=== PATIENT | male | born 1950 | race Caucasian/White ===

== ENCOUNTER 2019-09-22 11:20 | Outpatient (CLI) | payer MEDICARE, SELFPAY ==
[2019-09-22 11:34] LABS: Basophils Absolute Auto 0.01 K/mm3 (0.00-0.10); Basophils Percent Auto 0.2 % (0.0-1.0); Eosinophils Absolute Auto 0.27 K/mm3 (0.02-0.50); Hematocrit 44.1 % (37.0-46.0); Hemoglobin 15.9 g/dL (12.4-15.3); Immature Granulocyte Absolute 0.01 K/mm3 (0.00-0.00); Immature Granulocyte Percent A 0.2 % (0.0-0.0); Lymphocytes Percent Auto 18.5 % (18.0-42.0); Mean Corpuscular HGB Conc 36.1 g/dL (32.0-36.0); Mean Corpuscular Hemoglobin 33.5 pg (27.0-31.0); Mean Corpuscular Volume 92.8 fL (78.0-102.0); Mean Platelet Volume 9.4 fl (8.7-11.0); Monocytes Percent Auto 11.1 % (2.0-11.0); Neutrophils Absolute Auto 3.5 K/mm3 (1.7-7.2); Platelet Count Result 176 K/mm3 (150-420); Red Blood Count 4.75 M/mm3 (4.70-6.10); Red Cell Distribution Width 12.9 % (11.6-14.4); White Blood Count 5.4 K/mm3 (4.8-10.8)
[2019-09-22 13:26] LABS: Alanine Aminotransferase 35 U/L (16-63); Albumin Level 3.8 g/dL (3.4-5.0); Alkaline Phosphatase 91 U/L (46-116); Aspartate Amino Transferase 26 U/L (15-37); Bilirubin,Total 0.8 mg/dL (0.00-1.00); Blood Urea Nitrogen 19 mg/dL (7-18); Calcium 9.2 mg/dL (8.5-10.1); Carbon Dioxide 31 mmol/L (21-32); Chloride 97 mmol/L (98-108); Cholesterol 167 mg/dL (0-200); Estimated Glomerular Filt Rate 59; Glucose 85 mg/dL (70-99); HDL Direct 94 mg/dL (40-60); LDL Cholesterol Calculated 62 mg/dL (<130); Osmolality Calculated 279 mOsm/kg (285-295); Prostate Specific Antigen 1.5 ng/mL (< OR = 4.0); Sodium 134 mmol/L (136-145); Thyroid Stimulating Hormone 2.23 uIU/mL (0.36-3.74); Total Protein 7.1 g/dL (6.4-8.2); Triglycerides 54 mg/dL (0-150)
== END 2019-09-22 11:21 | disposition home or self-care (01) ==
LOC: CHSLAB 11:25
PROVIDERS: PCP Nurse Practitioner Family; Visit Provider Nurse Practitioner Family
DX: J44.9 Chronic obstructive pulmonary disease, unspecified (principal); I10 Essential (primary) hypertension; E03.9 Hypothyroidism, unspecified; E78.5 Hyperlipidemia, unspecified; F17.200 Nicotine dependence, unspecified, uncomplicated; Z12.5 Encounter for screening for malignant neoplasm of prostate
CPT/HCPCS: 36415; 80053; 80061; 84153; 84443; 85025; G0103

== ENCOUNTER 2020-06-15 14:16 | Outpatient (CLI) | payer MEDICARE, SELFPAY ==
[2020-06-15 15:27] LABS: SARS-CoV-2 RNA PCR Negative (Negative)
== END 2020-06-15 14:17 | disposition home or self-care (01) ==
LOC: CHSLAB 14:19
PROVIDERS: PCP Nurse Practitioner Family; Visit Provider Nurse Practitioner Family
DX: Z20.822 Contact with and (suspected) exposure to COVID-19 (principal)
CPT/HCPCS: C9803; U0003; U0005

== ENCOUNTER 2020-06-17 20:09 | Outpatient (CLI) | payer MEDICARE, BC, SELFPAY ==
--- NOTE | 2020-06-22 14:47 | WPDSLEEPSTUD ---
Sleep Study Date of Study: 06/17/20 Ordering Provider: Shobha Conklin NP Interpreting Physician: Ryan Horta MD Sleep Study Type: Polysomnogram Height: 1.73 m Weight: 81.647 kg Body Mass Index: 27.3 Neck Circumference (inches): 15.5 [place]: 2 Reason for Sleep Study Patient reports history of loud disruptive snoring, being fatigued and tired during daytime, prior sleep study approximately 20 years ago where a diagnosis of sleep apnea was made and the patient was recommended to have CPAP. Heparin TF 2nd sleep study was not conclusive. Patient also reports occasionally awakening in the middle of the night gasping for breath, occasional heartburn. Comorbid conditions include hypertension, COPD. Sleep History Loud snoring, daytime fatigue and tiredness. And overall poor sleep quality. [facility] Past Medical History Medical History (Updated 06/13/20 @ 14:38 by Jennifer Doshi MA) COPD (chronic obstructive pulmonary disease) COPD exacerbation Hyperlipidemia Hypertension Hypothyroidism Insomnia Nicotine dependence Nicotine dependence in remission Surgical History Surgical History History of cholecystectomy History of esophagogastroduodenoscopy (EGD) Family History Family History Mother Healthy adult Father , Age 61 Abdominal aneurysm Social History Social History Smoking packs per day: 1 Smoking cigarettes per day: 20.0 Years smoked: 50 Smoking pack-years: 50.00 Smoking status: Current every day smoker Alcohol intake: current Substance use: never Substance use type: does not use Additional living arrangements comments: , has 2 children Additional occupation/education comments: [place] [employer] Gender identity (if verbalized by the patient): Male Spiritual care concerns: No Medications Home Medications Medication Instructions Recorded Confirmed Type amlodipine 10 mg tablet 10 mg PO DAILY #90 tablet 04/04/20 04/04/20 Rx ascorbate calcium (vitamin C) 500 1 g PO DAILY tablet 04/04/20 History mg tablet budesonide-formoterol HFA 80 2 puff INHALATION Q12H #10.2 gm 04/04/20 04/04/20 Rx mcg-4.5 mcg/actuation aerosol inhaler levothyroxine 50 mcg tablet 50 mcg PO DAILY #90 tablet 04/04/20 04/04/20 Rx losartan 100 1 tablet PO DAILY #90 tablet 04/04/20 04/04/20 Rx mg-hydrochlorothiazide 12.5 mg tablet metoprolol succinate 50 mg 50 mg PO DAILY #90 tablet 04/04/20 04/04/20 Rx tablet,extended release 24 hr multivitamin 1 tablet PO DAILY #90 tablet 04/04/20 04/04/20 Rx pravastatin 40 mg tablet 40 mg PO DAILY #90 tablet 04/04/20 04/04/20 Rx trazodone 100 mg tablet 100 mg PO DAILY PRN #90 tablet 04/04/20 04/04/20 Rx albuterol sulfate 90 mcg/actuation 1 puff INHALATION Q4H PRN #8.5 gm 04/18/20 Rx aerosol inhaler Sleep Procedure Patient underwent overnight polysomnography in lab. Sleep Architecture Total recording time 454 minutes, total sleep time 284 minutes, sleep efficiency 62.6% which is poor. Sleep latency 63 minutes, REM latency 139 minutes. Awake after sleep onset 106.5 minutes, stage N1 16.4%, N2 69.1%, N3 0% and stage R 14.6%. Supine sleep 41.5%, supine REM sleep 9.5%.. Respiratory Analysis CMS criteria used Patient had 2 obstructive apneas with index 0.4 there were no central apneas, 43 hypopneas with index 9.1. AHI 9.5, supine index 21.9, nonsupine index 0.7. REM index 31.8, non-REM index 5.7. Arousals Total arousals 146 with index 19.3. Spontaneous arousals 45, leg movement arousals 25, snores arousals 53, hypopnea arousals 22, apnea arousals 1. Periodic Limb Movements There were 96 leg movements with index 20.3, 25 were associated with arousals with index 3.3 which is not excessive. There were no PLMS. Oximetry Data Mean oxygen saturati
[2020-06-22 15:04] VITALS: BMI 27.3
== END 2020-06-17 20:10 | disposition home or self-care (01) ==
LOC: CHSCSM 20:10
PROVIDERS: PCP Nurse Practitioner Family; Visit Provider Nurse Practitioner Family
DX: G47.33 Obstructive sleep apnea (adult) (pediatric) (principal)
CPT/HCPCS: 95810

== ENCOUNTER 2020-07-06 12:50 | Outpatient (CLI) | payer MEDICARE, SELFPAY ==
[2020-07-06 14:10] LABS: SARS-CoV-2 RNA PCR Negative (Negative)
== END 2020-07-06 12:51 | disposition home or self-care (01) ==
PROVIDERS: PCP Nurse Practitioner Family; Visit Provider Internal Medicine Critical Care Medicine
DX: Z01.812 Encounter for preprocedural laboratory examination (principal); Z20.822 Contact with and (suspected) exposure to COVID-19
CPT/HCPCS: C9803; U0003; U0005

== ENCOUNTER 2020-07-08 19:47 | Outpatient (CLI) | payer MEDICARE, BC, SELFPAY ==
--- NOTE | 2020-07-22 08:25 | WPDSLEEPSTUD ---
Sleep Study Ordering Provider: Shobha Conklin NP Interpreting Physician: Ryan Horta MD Sleep Study Type: CPAP Titration Height: 17.68 m Weight: 81.647 kg Body Mass Index: 0.2 Neck Circumference (inches): 15.5 [place]: 2 Reason for Sleep Study The patient has had prior sleep study on June 17, 2020, which showed presence of [id number] obstructive sleep apnea more prominent in supine sleep and during REM sleep. Patient was therefore referred for CPAP titration study because of his comorbid conditions and presence of hypoxia noted during the diagnostic sleep study. Sleep History Snoring, daytime sleepiness, non refreshing sleep. Patient has COPD. [facility] Past Medical History Medical History (Updated 06/13/20 @ 14:38 by Jennifer Pate MA) COPD (chronic obstructive pulmonary disease) COPD exacerbation Hyperlipidemia Hypertension Hypothyroidism Insomnia Nicotine dependence Nicotine dependence in remission Surgical History Surgical History History of cholecystectomy History of esophagogastroduodenoscopy (EGD) Family History Family History Mother Healthy adult Father , Age 61 Abdominal aneurysm Social History Social History Smoking packs per day: 1 Smoking cigarettes per day: 20.0 Years smoked: 50 Smoking pack-years: 50.00 Smoking status: Current every day smoker Alcohol intake: current Substance use: never Substance use type: does not use Additional living arrangements comments: , has 2 children Additional occupation/education comments: [employer] minor Gender identity (if verbalized by the patient): Male Spiritual care concerns: No Medications Home Medications Medication Instructions Recorded Confirmed Type amlodipine 10 mg tablet 10 mg PO DAILY #90 tablet 04/04/20 04/04/20 Rx ascorbate calcium (vitamin C) 500 1 g PO DAILY tablet 04/04/20 History mg tablet levothyroxine 50 mcg tablet 50 mcg PO DAILY #90 tablet 04/04/20 04/04/20 Rx losartan 100 1 tablet PO DAILY #90 tablet 04/04/20 04/04/20 Rx mg-hydrochlorothiazide 12.5 mg tablet metoprolol succinate 50 mg 50 mg PO DAILY #90 tablet 04/04/20 04/04/20 Rx tablet,extended release 24 hr multivitamin 1 tablet PO DAILY #90 tablet 04/04/20 04/04/20 Rx pravastatin 40 mg tablet 40 mg PO DAILY #90 tablet 04/04/20 04/04/20 Rx trazodone 100 mg tablet 100 mg PO DAILY PRN #90 tablet 04/04/20 04/04/20 Rx albuterol sulfate 90 mcg/actuation 1 puff INHALATION Q4H PRN #8.5 gm 06/29/20 Rx aerosol inhaler budesonide-formoterol HFA 80 2 puff INHALATION Q12H #10.2 gm 06/29/20 Rx mcg-4.5 mcg/actuation aerosol inhaler Sleep Procedure Patient underwent overnight polysomnography for the purpose of CPAP titration. Patient used [employer] fullface mask of large size. Sleep Architecture Total recording time 505 minutes, total sleep time 245 minutes, sleep efficiency 48.5%. Sleep latency 68 minutes, REM latency 68 minutes. Awake after sleep onset 192 minutes, stage N1 6.1%, stage N2 82.6%, stage N3 0%, stage R 11.2%,. Supine sleep 20.9%, supine REM sleep 0.9%. Respiratory Analysis CMS criteria were used. During CPAP titration patient had 1 central apnea with index 0.2, there were 5 hypopneas with index 1.2, AHI 1.5. REM index 4.4, non-REM index 1.1. Supine index 4.7, nonsupine index 0.6. Arousals Total arousals 31 with index 3.7, spontaneous arousal 30, hypopnea arousal 1. Periodic Limb Movements There were no leg movements. Oximetry Data Mean oxygen saturation 88.7%, lowest saturation 85%. SaO2<90%-243Min, SaO2<88%-16.4 Min. Patient continued to show mild but persistent hypoxia during CPAP titration. Hypoxia was also noted during diagnostic study in the past. Snoring Profile Mild interm
== END 2020-07-08 19:48 | disposition home or self-care (01) ==
LOC: CHSCSM 19:48
PROVIDERS: PCP Nurse Practitioner Family; Visit Provider Nurse Practitioner Family
DX: G47.33 Obstructive sleep apnea (adult) (pediatric) (principal)
CPT/HCPCS: 95811

== ENCOUNTER 2020-09-23 09:36 | Outpatient (CLI) | payer MEDICARE, BC, SELFPAY ==
[2020-09-23 09:50] LABS: Basophils Absolute Auto 0.03 K/mm3 (0.00-0.10); Basophils Percent Auto 0.6 % (0.0-1.0); Eosinophils Absolute Auto 0.31 K/mm3 (0.02-0.50); Eosinophils Percent Auto 6.1 % (1.0-6.0); Hematocrit 43.4 % (37.0-46.0); Hemoglobin 15.1 g/dL (12.4-15.3); Immature Granulocyte Absolute 0.01 K/mm3 (0.00-0.00); Immature Granulocyte Percent A 0.2 % (0.0-0.0); Lymphocytes Absolute Auto 0.99 K/mm3 (1.10-4.50); Lymphocytes Percent Auto 19.6 % (18.0-42.0); Mean Corpuscular HGB Conc 34.8 g/dL (32.0-36.0); Mean Corpuscular Hemoglobin 32.5 pg (27.0-31.0); Mean Corpuscular Volume 93.5 fL (78.0-102.0); Mean Platelet Volume 8.8 fl (8.7-11.0); Monocytes Absolute Auto 0.63 K/mm3 (0.10-0.90); Monocytes Percent Auto 12.5 % (2.0-11.0); Neutrophils Absolute Auto 3.1 K/mm3 (1.7-7.2); Platelet Count Result 163 K/mm3 (150-420); Red Blood Count 4.64 M/mm3 (4.70-6.10); Red Cell Distribution Width 13.2 % (11.6-14.4); White Blood Count 5.1 K/mm3 (4.8-10.8)
[2020-09-23 10:38] LABS: Alanine Aminotransferase 30 U/L (16-63); Albumin Level 3.5 g/dL (3.4-5.0); Alkaline Phosphatase 93 U/L (46-116); Anion Gap 7 mmol/L (8-16); Aspartate Amino Transferase 19 U/L (15-37); Bilirubin,Total 0.8 mg/dL (0.00-1.00); Blood Urea Nitrogen 11 mg/dL (7-18); Calcium 8.9 mg/dL (8.5-10.1); Carbon Dioxide 30 mmol/L (21-32); Chloride 105 mmol/L (98-108); Cholesterol 162 mg/dL (0-200); Estimated Glomerular Filt Rate > 60; Glucose 89 mg/dL (70-99); HDL Direct 87 mg/dL (40-60); LDL Cholesterol Calculated 65 mg/dL (<130); Osmolality Calculated 292 mOsm/kg (285-295); Prostate Specific Antigen 1.3 ng/mL (< OR = 4.0); Sodium 142 mmol/L (136-145); Thyroid Stimulating Hormone 1.27 uIU/mL (0.36-3.74); Total Protein 6.6 g/dL (6.4-8.2); Triglycerides 51 mg/dL (0-150)
== END 2020-09-23 09:37 | disposition home or self-care (01) ==
LOC: CHSLAB 09:40
PROVIDERS: PCP Nurse Practitioner Family; Visit Provider Nurse Practitioner Family
DX: E78.5 Hyperlipidemia, unspecified (principal); I10 Essential (primary) hypertension; R39.12 Poor urinary stream; E03.9 Hypothyroidism, unspecified
CPT/HCPCS: 36415; 80053; 80061; 84153; 84443; 85025

== ENCOUNTER 2021-03-15 14:09 | Outpatient (CLI) | payer MEDICARE, BC, SELFPAY ==
--- NOTE | ~2021-03-15 | XR_ITS ---
EXAMINATION: XR shoulder RT min 2V DATE: 03/15/2021 14:50 INDICATION: Right shoulder pain. TECHNIQUE: 4 views of right shoulder were obtained. COMPARISON: Chest CT 05/31/2018 FINDINGS: Bone alignment is normal. No acute fracture. There is mild osteoarthritis of glenohumeral j oint and severe osteoarthritis of acromioclavicular joint. There are old healed right rib fractures. Calcified hilar and mediastinal lymph nodes are consistent with old granulomatous disease. IMPRESSION: 1. Polyarticular osteoarthritis. Reviewed, dictated and finalized at location A. MING MACHINE OPERATOR
== END 2021-03-15 14:10 | disposition home or self-care (01) ==
LOC: CHSIMG 14:11
PROVIDERS: PCP Nurse Practitioner Family; Visit Provider Nurse Practitioner Family
DX: M25.511 Pain in right shoulder (principal)
CPT/HCPCS: 73030

== ENCOUNTER 2021-05-20 14:30 | Outpatient (CLI) | payer MEDICARE, BC, SELFPAY ==
--- NOTE | ~2021-05-20 | XR_ITS ---
EXAMINATION: XR elbow RT min 3V DATE: 05/20/2021 15:50 INDICATION: Right elbow pain TECHNIQUE: Anteroposterior, two oblique and lateral views of the right elbow were obtained. COMPARISON: None. FINDINGS: Alignment is normal. No fracture or joint effusion. Osteoarthritis at the right elbow with marginal o steophytes and nonuniform joint space narrowing which is of moderate severity at the radiocapitellar articulation. Marginal osteophyte at the proximal olecranon and likely loose body at the olecranon fo ssa. Results in decreased range of motion with flexion. Soft tissues are unremarkable. IMPRESSION: 1. Right elbow osteoarthritis moderate severity at the radiocapitellar articulation. Reviewed, dictated and finalized at location A. CIATE COUNSEL IMPRESSION: 1. Right elbow osteoarthritis moderate severity at the radiocapitellar articula tion.
== END 2021-05-20 14:31 | disposition home or self-care (01) ==
LOC: CHSIMG 14:33
PROVIDERS: PCP Orthopaedic Surgery; Visit Provider Orthopaedic Surgery
DX: M25.521 Pain in right elbow (principal)
CPT/HCPCS: 73080

== ENCOUNTER 2021-07-13 14:18 | Outpatient (CLI) | payer MEDICARE, SELFPAY ==
[2021-07-13 15:08] LABS: SARS-CoV-2 RNA PCR Negative (Negative)
[2021-07-13 15:19] LABS: Influenza A QL RT-PCR Negative (Negative); Influenza B QL RT-PCR Negative (Negative)
== END 2021-07-13 14:19 | disposition home or self-care (01) ==
LOC: CHSLAB 14:20
PROVIDERS: PCP Nurse Practitioner Family; Visit Provider Nurse Practitioner Family
DX: R50.9 Fever, unspecified (principal); Z20.822 Contact with and (suspected) exposure to COVID-19
CPT/HCPCS: 87502; C9803; U0003; U0005

== ENCOUNTER 2021-08-03 10:41 | Outpatient (CLI) | payer MEDICARE, SELFPAY ==
--- NOTE | ~2021-08-03 | CT_ITS ---
EXAMINATION: CT abdomen pelvis w con DATE: 08/03/2021 12:30 INDICATION: Lower abdominal pain. Intermittent diarrhea and constipation. TECHNIQUE: Computed tomography (CT) of the abdomen and pelvis was performed with 100 mL Omnipaque-300 intravenous contrast. Automated exposure control and iterative reconstruction technique were employe d. The dose-length product was 414.56 mGy-cm. COMPARISON: 06/01/2013 FINDINGS: Emphysema at the lung bases. Calcified right lower lobe nodule along with single hepatic location and several splenic calcific lesions consistent with old granulomatous disease. Heart size is normal. At herosclerotic coronary artery calcification. No pericardial or pleural effusion. Small fat-containing hiatal hernia. Cholecystectomy clips at the bilateral fossa. Mild focal hepatic steatosis at the lig amentum teres. Pancreas and bilateral adrenal glands are normal. Small bilateral renal cysts, the lar rosario on the right measuring 11 mm. Prominent diverticulosis along the descending and sigmoid colon. Mi ld wall thickening and inflammatory stranding at the distal descending colon consistent with divertic ulitis. Small bowel and appendix are normal. No abscess or free intraperitoneal gas or fluid. Bladder is normal. Calcific a cyst in the mildly enlarged prostate which measures 4.4 x 3.5 cm . No patholog ically enlarged abdominal or pelvic lymphadenopathy. There is calcified atherosclerosis of the aorta and many of the other arteries. Fusiform ectasia of the infrarenal aorta which measures up to 3.5 cm maximal diameter. 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 IMPRESSION: 1. Radiographically uncomplicated diverticulitis along the distal descending colon. Reviewed, dictated and finalized at location B. IMPRESSION: 1. Radiographically uncomplicated diverticulitis along the distal descending co saw.
[2021-08-03 10:55] LABS: Hematocrit 41.3 % (37.0-46.0); Hemoglobin 13.8 g/dL (12.4-15.3); Mean Corpuscular HGB Conc 33.4 g/dL (32.0-36.0); Mean Corpuscular Hemoglobin 31.7 pg (27.0-31.0); Mean Corpuscular Volume 94.7 fL (78.0-102.0); Mean Platelet Volume 9.4 fl (8.7-11.0); Platelet Count Result 199 K/mm3 (150-420); Red Blood Count 4.36 M/mm3 (4.70-6.10); Red Cell Distribution Width 12.5 % (11.6-14.4); White Blood Count 7.7 K/mm3 (4.8-10.8)
[2021-08-03 11:07] LABS: Prothrombin Time 10.5 Seconds (9.50-12.10)
[2021-08-03 11:23] LABS: Alanine Aminotransferase 22 U/L (16-63); Albumin Level 2.8 g/dL (3.4-5.0); Alkaline Phosphatase 94 U/L (46-116); Anion Gap 7 mmol/L (8-16); Aspartate Amino Transferase 15 U/L (15-37); Bilirubin,Total 0.6 mg/dL (0.00-1.00); Blood Urea Nitrogen 16 mg/dL (7-18); CRP 16.9 mg/dL (0.0-0.9); Calcium 8.6 mg/dL (8.5-10.1); Carbon Dioxide 28 mmol/L (21-32); Chloride 102 mmol/L (98-108); Estimated Glomerular Filt Rate 60; Glucose 90 mg/dL (70-99); Osmolality Calculated 285 mOsm/kg (285-295); Potassium 3.3 mmol/L (3.5-5.1); Sodium 137 mmol/L (136-145); Total Protein 6.9 g/dL (6.4-8.2)
== END 2021-08-03 10:42 | disposition home or self-care (01) ==
LOC: CHSLAB 10:45
PROVIDERS: PCP Family Medicine; Visit Provider Family Medicine
DX: R10.32 Left lower quadrant pain (principal); K57.32 Diverticulitis of large intestine without perforation or abscess without bleeding
CPT/HCPCS: 36415; 74177; 80053; 85027; 85610; 86140; 87324; Q9967

== ENCOUNTER 2021-10-25 07:23 | Outpatient (CLI) | payer MEDICARE, SELFPAY ==
--- NOTE | ~2021-10-25 | US_ITS ---
EXAMINATION: US aorta [facility] DATE: 10/25/2021 08:06 INDICATION: Abdominal aortic aneurysm TECHNIQUE: Grayscale, color Doppler, and pulsed Doppler images of the aorta and common iliac arteries were obtained. COMPARISON: CT, 08/03/2021 FINDINGS: Maximum vascular dimensions are as follows: Proximal aorta: Not visualized Mid aorta: 2.5 cm Distal aorta: 3.5 cm Right common iliac artery: 1.2 cm Left common iliac artery: 1.1 cm There is a 3.5 cm fusiform infrarenal abdominal aortic aneurysm. IMPRESSION: 1. 3.5 cm fusiform infrarenal abdominal aortic aneurysm. Reviewed, dictated and finalized at location A.
--- NOTE | ~2021-10-25 | CT_ITS ---
EXAMINATION: CT lung screening DATE: 10/25/2021 07:46 INDICATION: Personal history of tobacco dependence. TECHNIQUE: Computed tomography (CT) of the chest was performed without intravenous contrast. The dose -length product was 102.61 mGy-cm. Automated exposure control and iterative reconstruction technique were employed. COMPARISON: CT chest dated 05/31/2018 FINDINGS: There is evidence for chronic granulomatous disease of the mediastinum, tino and lung paren chyma. There are multiple healed right rib fractures. No evidence for aortic aneurysm. Heart size nor mal. No significant pleural or pericardial effusion. There are multiple noncalcified nodules in the r ight upper lobe, largest measuring 5 mm. There are multiple calcified granulomas of both lungs. There is moderate emphysema. There is a 5 mm pleural-based right upper lobe nodule, image 22. There is an elongated pleural based soft tissue mass along the fissure involving the left upper lobe. On the sagi ttal reconstruction images the soft tissue has an elongated appearance. Maximum thickness of the soft tissue is 1.5 cm IMPRESSION: 1. Lung Rads category 4B: Recommend PET/CT or percutaneous biopsy. Reviewed, dictated and finalized at location B.
[2021-10-25 07:37] LABS: Basophils Absolute Auto 0.05 K/mm3 (0.00-0.10); Basophils Percent Auto 1.1 % (0.0-1.0); Eosinophils Absolute Auto 0.25 K/mm3 (0.02-0.50); Eosinophils Percent Auto 5.7 % (1.0-6.0); Hematocrit 42.4 % (37.0-46.0); Hemoglobin 14.2 g/dL (12.4-15.3); Immature Granulocyte Absolute 0.03 K/mm3 (0.00-0.00); Immature Granulocyte Percent A 0.7 % (0.0-0.0); Lymphocytes Absolute Auto 1.04 K/mm3 (1.10-4.50); Lymphocytes Percent Auto 23.7 % (18.0-42.0); Mean Corpuscular HGB Conc 33.5 g/dL (32.0-36.0); Mean Corpuscular Hemoglobin 31.6 pg (27.0-31.0); Mean Corpuscular Volume 94.4 fL (78.0-102.0); Mean Platelet Volume 9.4 fl (8.7-11.0); Monocytes Absolute Auto 0.59 K/mm3 (0.10-0.90); Monocytes Percent Auto 13.5 % (2.0-11.0); Neutrophils Absolute Auto 2.4 K/mm3 (1.7-7.2); Neutrophils Percent Auto 55.3 % (50.0-70.0); Platelet Count Result 171 K/mm3 (150-420); Red Blood Count 4.49 M/mm3 (4.70-6.10); Red Cell Distribution Width 14.3 % (11.6-14.4); White Blood Count 4.4 K/mm3 (4.8-10.8)
[2021-10-25 08:06] LABS: Alanine Aminotransferase 27 U/L (16-63); Albumin Level 3.3 g/dL (3.4-5.0); Alkaline Phosphatase 83 U/L (46-116); Anion Gap 5 mmol/L (8-16); Aspartate Amino Transferase 23 U/L (15-37); Bilirubin,Total 0.6 mg/dL (0.00-1.00); Blood Urea Nitrogen 12 mg/dL (7-18); Calcium 8.5 mg/dL (8.5-10.1); Carbon Dioxide 30 mmol/L (21-32); Chloride 98 mmol/L (98-108); Cholesterol 148 mg/dL (0-200); Estimated Glomerular Filt Rate 55; Glucose 91 mg/dL (70-99); HDL Direct 81 mg/dL (40-60); LDL Cholesterol Calculated 57 mg/dL (<130); Osmolality Calculated 275 mOsm/kg (285-295); Potassium 3.9 mmol/L (3.5-5.1); Sodium 133 mmol/L (136-145); Thyroid Stimulating Hormone 3.11 uIU/mL (0.36-3.74); Total Protein 6.4 g/dL (6.4-8.2); Triglycerides 51 mg/dL (0-150)
== END 2021-10-25 07:24 | disposition home or self-care (01) ==
LOC: CHSIMG 07:25
PROVIDERS: PCP Nurse Practitioner Family; Visit Provider Nurse Practitioner Family
DX: I71.9 Aortic aneurysm of unspecified site, without rupture (principal); Z87.891 Personal history of nicotine dependence; I10 Essential (primary) hypertension; E78.5 Hyperlipidemia, unspecified; E03.9 Hypothyroidism, unspecified
CPT/HCPCS: 36415; 71271; 76706; 80053; 80061; 84443; 85025

== ENCOUNTER 2021-11-07 08:55 | Outpatient (CLI) | payer MEDICARE, SELFPAY ==
--- NOTE | ~2021-11-07 | PE_ITS ---
EXAMINATION: PET skull to mid thigh DATE: 11/07/2021 11:01 INDICATION: Lung RADS category 4B nodule. TECHNIQUE: Blood glucose level was 93 mg/dL. 10.457 mCi of 18-fluorodeoxyglucose (18-FDG) was adminis tered i.v. Low dose computed tomography (CT) images were acquired from the base of the brain to the p roximal thighs for attenuation correction and anatomic localization. Positron emission tomography (PE T) images were acquired in the same distribution beginning 73 minutes after injection. Images includi ng fused PET/CT images were reconstructed in axial, coronal, and sagittal planes. Automated exposure control technique was employed. The dose-length product was 482.49mGy-cm. COMPARISON: Chest CT dated 10/25/2021 FINDINGS: Head/neck: There is symmetric increased activity in the oral cavity, palatine tonsils, laryngeal muscles and ocu lar muscles without CT correlate, likely physiologic. No pathologically enlarged cervical lymphadenop athy or suspicious foci of increased FDG uptake in the visualized head or neck. Atherosclerotic calci fications at the bilateral carotid bulbs. Chest: Mild emphysema. No FDG uptake associated with the previously noted elongated lenticular/thick bandlik e opacity in the posterior lingula stenting along the anterior margin of the major fissure with confi guration and absence of FDG uptake favoring discoid atelectasis/scarring. No FDG uptake associated wi th a 9 x 4 mm pleural-based right upper lobe nodule, a 7 x 3 mm subpleural lung anterior right upper lobe or a few additional <4 mm parenchymal nodules in the right upper lobe. No FDG avid pulmonary nod ules, pneumonia, pulmonary edema or pleural effusion. There are calcified bilateral hilar and mediast inal lymph nodes. There are also mildly FDG avid bilateral hilar and mediastinal lymph nodes. For ref erence a the most intense uptake with maximal SUV of 5.8 is seen at the left hilum associated with a lymph node more clearly delineated on the prior CT at which time it measured 12 x 10 mm with small fo ci of peripheral calcification. Heart size is normal. Atherosclerotic coronary artery calcification. No pericardial effusion. Thoracic aorta is normal in caliber. Abdomen/pelvis/proximal thighs: Physiologic renal accumulation and excretion of FDG activity in the kidneys, bladder and along portio ns of ureters. Cholecystectomy clips at the gallbladder fossa. Normal degree and heterogenous pattern of increased uptake throughout the liver without radiologic correlate or dominant FDG avid lesion. M ultiple small splenic calcifications consistent with old granulomatous disease. Pancreas and bilatera l adrenal glands are normal. There is moderate diverticulosis along the descending and sigmoid colon without adjacent inflammatory change to suggest diverticulitis. Moderate uptake at the cecum with mil d uptake scattered throughout the remainder of the bowels without radiologic correlate, also likely p hysiologic. Normal appendix. Prostatomegaly. Normal mildly increased bilateral testicular activity. N o other abnormal foci of increased FDG uptake or pathologically enlarged lymphadenopathy in the abdom en, pelvis or proximal thighs. Musculoskeletal: There are several old healed right-sided rib fractures. No suspicious lytic, blastic or FDG avid bone lesions. IMPRESSION: 1. No increased FDG uptake associated with a fungating lenticular/thickened bandlike opacity at the p osterior lingula most likely representing atelectasis/scarring. Would recommend six-month follow-up l ow-dose noncontrast chest CT. 2. Mild to moderate FDG uptake associated with several bilateral hilar and mediastinal lymph nodes wh ich are at the upper limits of normal in size, most likely reactive with differential including less likely metastatic disease or lymphoma. 3. Moderate emphysema. 4. Diverticulosis.
[2021-11-07 09:36] LABS: Glucose Point of Care 93 mg/dl (65-105)
== END 2021-11-07 08:56 | disposition home or self-care (01) ==
PROVIDERS: PCP Nurse Practitioner Family; Visit Provider Nurse Practitioner Family
DX: R91.1 Solitary pulmonary nodule (principal); J43.9 Emphysema, unspecified; K57.90 Diverticulosis of intestine, part unspecified, without perforation or abscess without bleeding
CPT/HCPCS: 78815; A9552

== ENCOUNTER 2022-07-13 12:47 | Outpatient (CLI) | payer MEDICARE, BC, SELFPAY ==
--- NOTE | ~2022-07-13 | XR_ITS ---
Clinical Indication: Shortness of breath PA and lateral views of the chest: Comparison: 05/31/2018 Findings: The lungs are clear, without evidence of focal consolidation or pleural effusion. COPD pat tern is present. Cardiomediastinal silhouette is within normal limits. Bones and soft tissues are unr emarkable. Impression: COPD. Reviewed, dictated and finalized at location . Impression: COPD.
[2022-07-13 12:59] LABS: Hematocrit 41.3 % (37.0-46.0); Mean Corpuscular HGB Conc 33.9 g/dL (32.0-36.0); Mean Corpuscular Hemoglobin 31.5 pg (27.0-31.0); Mean Corpuscular Volume 92.8 fL (78.0-102.0); Mean Platelet Volume 9.4 fl (8.7-11.0); Platelet Count Result 143 K/mm3 (150-420); Red Blood Count 4.45 M/mm3 (4.70-6.10); Red Cell Distribution Width 13.7 % (11.6-14.4); White Blood Count 5.2 K/mm3 (4.8-10.8)
[2022-07-13 13:35] LABS: Alanine Aminotransferase 29 U/L (16-63); Albumin Level 3.5 g/dL (3.4-5.0); Alkaline Phosphatase 101 U/L (46-116); Anion Gap 8 mmol/L (8-16); Aspartate Amino Transferase 23 U/L (15-37); Bilirubin,Total 0.6 mg/dL (0.00-1.00); Blood Urea Nitrogen 11 mg/dL (7-18); Calcium 8.7 mg/dL (8.5-10.1); Carbon Dioxide 32 mmol/L (21-32); Chloride 100 mmol/L (98-108); Estimated Glomerular Filt Rate 57; Glucose 90 mg/dL (70-99); Lipase 35 U/L (16-77); NT Pro B Type Natriuretic Pept 88 pg/mL (0-125); Osmolality Calculated 289 mOsm/kg (285-295); Potassium 3.5 mmol/L (3.5-5.1); Sodium 140 mmol/L (136-145); Total Protein 6.9 g/dL (6.4-8.2)
== END 2022-07-13 12:48 | disposition home or self-care (01) ==
LOC: CHSLAB 12:50
PROVIDERS: PCP Family Medicine; Visit Provider Family Medicine
DX: R10.9 Unspecified abdominal pain (principal); J40 Bronchitis, not specified as acute or chronic; I10 Essential (primary) hypertension; R06.02 Shortness of breath; R05.9 Cough, unspecified; J44.9 Chronic obstructive pulmonary disease, unspecified
CPT/HCPCS: 36415; 71046; 80053; 83690; 83880; 85027

== ENCOUNTER 2022-07-18 10:19 | Outpatient (CLI) | payer MEDICARE, BC, SELFPAY ==
--- NOTE | ~2022-07-18 | CT_ITS ---
CT Scan of the Chest without Contrast: Clinical Indication: Pulmonary nodule Technique: Contiguous sections were acquired throughout the chest without intravenous contrast. Dose reduction technique was used on this scan by utilizing automated exposure control and iterative recon struction technique. The dose-length product (DLP) was 101.06 mGy-cm. COMPARISON: 10/25/2021, 05/31/2018 Findings: Calcified mediastinal and hilar lymph nodes are present. There are atherosclerotic calcifications of the aorta. There is no evidence of pleural or pericardial effusion. Stable 3 mm right apical pulmonary nodule. Stable additional 3 mm right upper lobe pulmonary nodule ( axial image 27). Calcified right basilar granulomas present. Stable mild emphysematous change in the lungs. Stable lingular scarring as compared to most recent prior exam. Images through the upper abdomen reveal no abnormalities. Impression: Stable presumed lingular scarring and benign appearing pulmonary nodules since 10/25/2021, as noted ab jose. Emphysematous change, stable from prior exam. Reviewed, dictated and finalized at [facility]. Impression: Stable presumed lingular scarring and benign appearing pulmonary nodules since 10/25/2021, as noted above. Emphysematous change, stable from prior exam.
== END 2022-07-18 10:20 | disposition home or self-care (01) ==
LOC: CHSIMG 10:20
PROVIDERS: PCP Family Medicine; Visit Provider Family Medicine
DX: R91.1 Solitary pulmonary nodule (principal)
CPT/HCPCS: 71250

== ENCOUNTER 2022-07-26 07:14 | Outpatient (CLI) | payer MEDICARE, BC, SELFPAY ==
--- NOTE | ~2022-07-26 | US_ITS ---
Ultrasound of the Abdominal Aorta INDICATION: Abdominal aortic aneurysm TECHNIQUE: Grayscale, color Doppler, and pulsed Doppler images of the aorta and common iliac arteries were obtained. COMPARISON: 10/25/2021 FINDINGS: Maximum vascular dimensions are as follows: Proximal aorta: 2.1 cm Mid aorta: 3.3 cm Distal aorta: 3.7 cm Right common iliac artery: 1.3 cm Left common iliac artery: 1.2 cm Distal infrarenal abdominal aortic aneurysm measures up to 3.7 cm in maximum transverse diameter. IMPRESSION: 3.7 cm distal infrarenal abdominal aortic aneurysm, minimally increased from prior exam. 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 Reviewed, dictated and finalized at location M. IMPRESSION: 3.7 cm distal infrarenal abdominal aortic aneurysm, minimally increased from pr ior exam. Consider cross-sectional imaging to further evaluate, as indicated.
== END 2022-07-26 07:15 | disposition home or self-care (01) ==
LOC: CHSIMG 07:15
PROVIDERS: PCP Family Medicine; Visit Provider Family Medicine
DX: I71.40 Abdominal aortic aneurysm, without rupture, unspecified (principal)
CPT/HCPCS: 76775

== ENCOUNTER 2023-02-04 10:28 | Outpatient (CLI) | payer MEDICARE, BC, SELFPAY ==
[2023-02-04 10:40] LABS: Basophils Absolute Auto 0.05 K/mm3 (0.00-0.10); Basophils Percent Auto 1.1 % (0.0-1.0); Eosinophils Absolute Auto 0.33 K/mm3 (0.02-0.50); Eosinophils Percent Auto 7.4 % (1.0-6.0); Hematocrit 43.6 % (37.0-46.0); Hemoglobin 14.9 g/dL (12.4-15.3); Immature Granulocyte Absolute 0.02 K/mm3 (0.00-0.00); Immature Granulocyte Percent A 0.5 % (0.0-0.0); Lymphocytes Absolute Auto 0.94 K/mm3 (1.10-4.50); Lymphocytes Percent Auto 21.2 % (18.0-42.0); Mean Corpuscular HGB Conc 34.2 g/dL (32.0-36.0); Mean Corpuscular Hemoglobin 32.9 pg (27.0-31.0); Mean Corpuscular Volume 96.2 fL (78.0-102.0); Mean Platelet Volume 9.3 fl (8.7-11.0); Monocytes Absolute Auto 0.46 K/mm3 (0.10-0.90); Monocytes Percent Auto 10.4 % (2.0-11.0); Neutrophils Absolute Auto 2.6 K/mm3 (1.7-7.2); Neutrophils Percent Auto 59.4 % (50.0-70.0); Platelet Count Result 143 K/mm3 (150-420); Red Blood Count 4.53 M/mm3 (4.70-6.10); Red Cell Distribution Width 12.9 % (11.6-14.4); White Blood Count 4.4 K/mm3 (4.8-10.8)
[2023-02-04 11:10] LABS: Alanine Aminotransferase 28 U/L (16-63); Albumin Level 3.4 g/dL (3.4-5.0); Alkaline Phosphatase 77 U/L (46-116); Anion Gap 3 mmol/L (8-16); Aspartate Amino Transferase 20 U/L (15-37); Bilirubin,Total 0.7 mg/dL (0.00-1.00); Blood Urea Nitrogen 24 mg/dL (7-18); Carbon Dioxide 35 mmol/L (21-32); Chloride 106 mmol/L (98-108); Cholesterol 167 mg/dL (0-200); Estimated Glomerular Filt Rate 52; Glucose 92 mg/dL (70-99); HDL Direct 96 mg/dL (40-60); LDL Cholesterol Calculated 62 mg/dL (<130); Osmolality Calculated 302 mOsm/kg (285-295); Potassium 4.1 mmol/L (3.5-5.1); Sodium 144 mmol/L (136-145); Total Protein 6.5 g/dL (6.4-8.2); Triglycerides 44 mg/dL (0-150)
== END 2023-02-04 10:29 | disposition home or self-care (01) ==
PROVIDERS: PCP Family Medicine; Visit Provider Family Medicine
DX: I10 Essential (primary) hypertension (principal)
CPT/HCPCS: 36415; 80053; 80061; 85025

== ENCOUNTER 2023-08-15 07:53 | Outpatient (CLI) | payer MEDICARE, BC, SELFPAY ==
--- NOTE | ~2023-08-15 | CT_ITS ---
CT Scan of the Chest without Contrast: Clinical Indication: Pulmonary nodule, chest pain Technique: Contiguous sections were acquired throughout the chest without intravenous contrast. Dose reduction technique was used on this scan by utilizing automated exposure control and iterative recon struction technique. The dose-length product (DLP) was 90.91 mGy-cm. COMPARISON: 07/18/2022 Findings: There is no evidence of any significant mediastinal, hilar or axillary lymphadenopathy. Calcified med iastinal lymph nodes are present. There are atherosclerotic calcifications of the aorta and coronary arteries. There is no evidence of pleural or pericardial effusion. Stable 2 mm right apical pulmonary nodule. Stable additional 2 mm right upper lobe pulmonary nodule. Stable 13 mm nodule at the lingula with a related to chronic scarring or atelectasis. Moderate emphys levi present. Images through the upper abdomen reveal no abnormalities. Impression: Stable pulmonary nodules, as above. Moderate emphysema. Reviewed, dictated and finalized at [facility]. Impression: Stable pulmonary nodules, as above. Moderate emphysema.
--- NOTE | ~2023-08-15 | US_ITS ---
EXAMINATION: US aorta DATE: 08/15/2023 08:15 CDT INDICATION: Abdominal aortic aneurysm TECHNIQUE: Grayscale, color Doppler, and pulsed Doppler images of the aorta and common iliac arteries were obtained. COMPARISON: None. FINDINGS: The proximal aorta is not well visualized due to bowel gas. The mid aorta measures 2.4 cm greatest sa gittal dimension. The distal aorta measures 3.7 cm greatest sagittal dimension. The right common inte rnal iliac artery measures 1.2 cm. The left common iliac artery measures 1.5 cm. IMPRESSION: 1. Infrarenal abdominal aortic aneurysm measuring 3.7 cm. Limited evaluation of the proximal abdomina l aorta. Reviewed, dictated and finalized at location B. IMPRESSION: 1. Infrarenal abdominal aortic aneurysm measuring 3.7 cm. Limited evaluation of the proximal abdominal aorta.
== END 2023-08-15 07:54 | disposition home or self-care (01) ==
LOC: CHSIMG 07:54
PROVIDERS: PCP Family Medicine; Visit Provider Nurse Practitioner Family
DX: J43.9 Emphysema, unspecified (principal); I71.9 Aortic aneurysm of unspecified site, without rupture; R91.8 Other nonspecific abnormal finding of lung field; Z87.891 Personal history of nicotine dependence
CPT/HCPCS: 71250; 76775

== ENCOUNTER 2023-09-17 09:45 | Outpatient (CLI) | payer MEDICARE, BC, SELFPAY ==
--- NOTE | 2023-10-09 21:55 | WPDPFTINT ---
PFT Procedure Performed PFT Procedure Performed Spirometry with Pre/Post Bronchodilator Plethysmography (Lung Vol) Diffusing Cap (DLCO) Flow Vol Loop PFT Interpretation DOS: 09/17/2023 REQUESTING: Dr. Aguilar Pinedo REASON FOR TESTING: COPD PULMONARY FUNCTION TESTS Results are reliable and reproducible. Repeatability of spirometry FEV1 maneuver pre and post bronchodilator is Grade A. Spirometry: The pre-bronchodilator FEV1 is 0.81 L, 29% severely reduced. The pre-bronchodilator FVC is 2.45 L, 67%, mildly reduced. The FEV1/FVC ratio is 33% severely reduced. After bronchodilator, the FEV1 is 0.91 L, 32%, +12%. The FVC is 3.08 L, 85%, +26%. The FEV1/FVC ratio is 29%. Lung volumes: The total lung capacity is 8.40 L, 140%, increased, consistent with hyperinflation. The residual volume is 5.70 L, 232%, severe air trapping. The RV/TLC is 68%. Increased airway resistance. Diffusion: DLCO is 10.7, 60%. The DLCO/VA is 2.24, 64%. Flow volume loop: The flow volume loop shows extreme coving of the expiratory limb. IMPRESSION: This study shows extremely severe obstructive ventilatory impairment with a good response to bronchodilator, moderate hyperinflation, severe air trapping and mild diffusion impairment. There are no prior studies for comparison. Mckayla Albert MD
== END 2023-09-17 09:46 | disposition home or self-care (01) ==
PROVIDERS: PCP Family Medicine; Visit Provider Family Medicine
DX: J44.9 Chronic obstructive pulmonary disease, unspecified (principal)
CPT/HCPCS: 94060; 94726; 94729

== ENCOUNTER 2024-05-04 14:05 | Outpatient (CLI) | payer MEDICARE, BC, SELFPAY ==
[2024-05-04 14:29] LABS: Basophils Absolute Auto 0.06 K/mm3 (0.00-0.10); Eosinophils Absolute Auto 0.29 K/mm3 (0.02-0.50); Eosinophils Percent Auto 4.6 % (1.0-6.0); Hematocrit 43.6 % (37.0-46.0); Hemoglobin 14.6 g/dL (12.4-15.3); Immature Granulocyte Absolute 0.01 K/mm3 (0.00-0.00); Immature Granulocyte Percent A 0.2 % (0.0-0.0); Lymphocytes Absolute Auto 0.97 K/mm3 (1.10-4.50); Lymphocytes Percent Auto 15.5 % (18.0-42.0); Mean Corpuscular HGB Conc 33.5 g/dL (32-36); Mean Corpuscular Hemoglobin 31.4 pg (27.0-31.0); Mean Corpuscular Volume 93.8 fL (78.0-102.0); Mean Platelet Volume 9.8 fl (8.7-11.0); Monocytes Absolute Auto 0.65 K/mm3 (0.10-0.90); Monocytes Percent Auto 10.4 % (2.0-11.0); Neutrophils Absolute Auto 4.28 K/mm3 (1.70-7.20); Neutrophils Percent Auto 68.3 % (50.0-70.0); Platelet Count Result 157 K/mm3 (150-420); Red Blood Count 4.65 M/mm3 (4.70-6.10); Red Cell Distribution Width 13.2 % (11.6-14.4); White Blood Count 6.3 K/mm3 (4.8-10.8)
[2024-05-04 14:56] LABS: Alanine Aminotransferase 29 U/L (16-63); Albumin Level 3.9 g/dL (3.4-5.0); Alkaline Phosphatase 96 U/L (46-116); Anion Gap 6 mmol/L (4-12); Aspartate Amino Transferase 21 U/L (15-37); Bilirubin,Total 0.9 mg/dL (0.00-1.00); Blood Urea Nitrogen 22 mg/dL (7-18); Calcium 8.9 mg/dL (8.5-10.1); Carbon Dioxide 32 mmol/L (21-32); Chloride 102 mmol/L (98-108); Cholesterol 161 mg/dL (0-200); Estimated Glomerular Filt Rate 48; Free T4 Free Thyroxine 1.01 ng/dL (0.76-1.46); Glucose 89 mg/dL (70-99); HDL Direct 83 mg/dL (40-60); LDL Cholesterol Calculated 66 mg/dL (<130); Osmolality Calculated 292 mOsm/kg (285-295); Potassium 4.5 mmol/L (3.5-5.1); Prostate Specific Antigen 2.1 ng/mL (< OR = 4.0); Sodium 140 mmol/L (136-145); Thyroid Stimulating Hormone 2.74 uIU/mL (0.36-3.74); Total Protein 7.2 g/dL (6.4-8.2); Triglycerides 62 mg/dL (0-150)
--- OUTSIDE RECORDS SUMMARY | 2024-05-04 16:25 | XMS_ITS | Encounter Summary ---
Author Organization [facility] Address [address] [place] [address] Care Team Providers Care Guide Dog Mobility Instructor Name Role Phone Brayden Stroud MD Primary Care Provider Marcelo Lozano MD Un[facility] Shobha Sahni FOOD PRODUCTION MANAGER Primary Care Provider [phone] Nusrat Dutton MD Unavailable Encounter Details Date Type Department Care Team (Late st Contact Info) Description 05/02/2018 Abstract [facility] [address] [place] [phone] Abstract, Doc [facility] Social History Tobacco Use Types Packs/Day Years Used Date Smoking Tobacco: Every Day Cigarettes Smokeless Tobacco: Never Alcohol Use Standard Drinks/Week Comments No 0 (1 standard drink = 0.6 oz pur e alcohol) AUDIT-C Answer Date Recorded Frequency of Alcohol Consumption Never 05/02/2018 Average Number of Drinks Not on file 019 Frequency of Binge Drinking Not on file 04/12 Sex and Gender Information Value Date Recorded Sex Assigned at Not on file Legal Sex Male 2:41 PM CDT Gender Identity Not on file Sexual Orientation Not on file documented as of this encounter Plan of Treatment Upcoming Encounters Date Type Department Care Team (Late st Contact Info) Description 05/20/2024 12:[address] [facility] [address] [place] [address] Nusrat Dutton MD [address] [place] [address] 05/20/2024 1:30 PM CDT Appointment [address] [place] [address] Nusrat Dutton MD [address] [place], [place] [address] 06/01/2024 12:45 PM CDT Office Visit [facility] [address] [place] [phone] Nusrat Dutton MD [address] [place], [place] 5[address]39 documented as of this encounter Visit Diagnoses Not on filedocumented in this encounter Care Teams Guide Dog Mobility Instructor Relationship Specialty Start Date End Date Brayden Stroud MD PCP - General SURGERY 10/11/17 10/05/20 Shobha Conklin FNP [facility] [place] [address] PCP - General NURSE PRACTITIONER 10/06/20 Marcelo Marcum MD Ten Sleep Assembler [employer] Turbine CARDIOVASCULAR DISEASE 10/11/17 06/26/23 Nusrat Dutton MD [address] [place] [address] Consulting Physician CARDIOVASCULAR DISEASE 06/27/23 documented as of this encounter
--- OUTSIDE RECORDS SUMMARY | 2024-05-04 16:25 | XMS_ITS | Encounter Summary ---
Author Organization [facility] Address [facility] [place] [address] Care Team Providers Care Heading And Priming Tool Setter Name Role Phone Marcelo Marcum MD Unavailable UnavailShobha Olivares PERSONNEL ARBITRATOR Primary Care Provider [phone] Nusrat Dutton MD Unavailable Encounter Details Date Type Department Care Team (Late st Contact Info) Description 09/05/2022 MyChart Message Enc [facility] [address] [place] [phone] [place], [facility] Provider Air Quality Message Social History Tobacco Use Types Packs/Day Years [...] PM CDT [facility] [facility] [address] [place] [address] Nusrat Dutton MD [address] [place] [address] 05/20/2024 1:30 PM CDT Appointment [facility] [address] [facility] [place] [address] Nusrat Dutton MD [address] [place], [place] [address] 06/01/2024 12:45 PM CDT Office Visit [facility] [address] [place] [address] Nusrat Dutton MD [address] [place] [address] documented as of this encounter Visit Diagnoses Not on filedocumented in this encounter Care Teams Heading And Priming Tool Setter Relationship Specialty Start Date End Date Shobha Conklin FNP [facility] [place] [address] PCP - General NURSE PRACTITIONER 10/06/20 Marcelo Marcum MD [place] Set Up Operator CARDIOVASCULAR DISEASE 10/11/17 06/26/23 Nusrat Dutton MD [address] [place] [address] Consulting Physician CARDIOVASCULAR DISEASE 06/27/23 documented as of this encounter
--- OUTSIDE RECORDS SUMMARY | 2024-05-04 16:25 | XMS_ITS | Encounter Summary ---
Author Organization [facility] Address [address] [place] [address] Care Team Providers Care Carbon Setter Name Role Phone Marcelo Marcum MD Unavailable [facility] Shobha Sahni [facility] Primary Care Provider [phone] Nusrat Dutton MD Unavailable Encounter Details Date Type Department Care Team (Late Contact Info) Description 01/30/2023 Abstract [facility] [address] [place] [phone] Marcelo Marcum MD Social History Tobacco Use Types Packs/Day Years [...] Encounters Date Type Department Care Team (Late Contact Info) Description 05/20/2024 12:[address] [place] [address] Nusrat Dutton MD [address] [place] [address] 05/20/2024 1:[address] [facility] [address] [facility] [place] [address] Nusart Dutton MD [address] [place], [place] [phone] 06/01/2024 12:45 PM CDT Office Visit [facility] [address] [place] [phone] Nusrat Dutton MD [address] [place], [place] 5268[address] documented as of this encounter Procedures Procedure Name Priority Date/Time Associated Diagnosis Comments CMP (ABSTRACTED LAB) Routine 10/25/2021 TSH (OUTSIDE LAB) Routine 10/25/2021 LIPID PANEL Routine 10/25/2021 documented in this encounter Results * TSH (OUTSIDE LAB) (10/25/2021) TSH 3.11 0.36 - 3.74 10/25/2021 us Default History Genericprovider LAB-OUTSIDE/ABST RACTED Final Result * LIPID PANEL (10/25/2021) Pathologist [facility] CHOLESTEROL 148 0 - 200 HDL 81 40 - 60 TRIGLYCERIDES 51 0 - 150 LDL (CALCULATED) 57 <130 10/25/2021 us Default History Genericprovider LABORATORY Final Result * (ABNORMAL) CMP (ABSTRACTED LAB) (10/25/2021) SODIUM S/P/B 133 136 - 145 POTASSIUM S/P/B 3.9 3.5 - 5.1 CHLORIDE S/P/B 98 98 - 108 CO2 30 21 - 32 BUN 12 7 - 18 CREATININE S/P/B 1.28 0.7 - 1.3 EGFR NON-AFR. AMER. 55 <=90 CALCIUM S/P/B 8.5 8.5 - 10.1 GLUCOSE 91 70 - 99 mg/dL TOTAL PROTEIN S/P/B 6.4 6.4 - 8.2 ALBUMIN S/P/B 3.3(A) 3.5 - 5.0 AST 23 15 - 37 ALT 27 16 - 63 ALKALINE PHOSPHATASE S/P/B 83 46 - 116 BILIRUBIN TOTAL S/P/B 0.6 0.00 - 1.00 10/25/2021 us Default History Genericprovider LAB-OUTSIDE/ABST RACTED Final Result documented in this encounter Visit Diagnoses Not on filedocumented in this encounter Care Teams Carbon Setter Relationship Specialty Start Date End Date Shobha Conklin FNP [address] [place] [address] PCP - General NURSE PRACTITIONER 10/06/20 Marcelo Marcum MD [place] Cardiac Cath Lab Technologist CARDIOVASCULAR DISEASE 10/11/17 06/26/23 Nusrat Dutton MD [address] [place] [address] Consulting Physician CARDIOVASCULAR DISEASE 06/27/23 documented as of this encounter
--- OUTSIDE RECORDS SUMMARY | 2024-05-04 16:25 | XMS_ITS | Clinical Summary ---
Author Organization [facility] Address [address] [place] [address] Care Team Providers Care Vp Software Support Name Role Phone Aguilar Pinedo DO Primary Care Provider Allergies Active Allergy Reactions Criticality Noted Date Comments Aspirin Medications ProAir HFA 90 mcg/actuation inhaler INHALE 1 PUFF PO Q 4 HOURS PRF SOB OR WHEEZING . GEF PROAIR HFA 0 Active amLODIPine (NORVASC) 10 mg tablet Take 1 tablet (10 mg total) by mouth daily Active aspirin 81 mg chewable tablet Take 1 tablet (81 mg total) by mouth daily Active diphenhydrAMINE (BENADRYL) 50 mg tablet Take 1 tablet (50 mg total) by mouth nightly as needed Active levothyroxine (SYNTHROID) 50 mcg tablet Take 1 tablet (50 mcg total) by mouth undercutter operator before breakfast Active losartan-hydroC HLOROthiazide (HYZAAR) 100-12.5 mg per tablet Take 1 tablet by mouth daily 9 Active metoprolol XL (TOPROL-XL) 50 mg extended release tablet Take 1 tablet (50 mg total) by mouth daily Active pravastatin (PRAVACHOL) 40 mg tablet Take 1 tablet (40 mg total) by mouth daily 9 Active traZODone (DESYREL) 150 mg tablet 2 Active vitamin B complex with vitamin C tabletIndicatio ns:Vitamin Deficiency Prevention Take 1 tablet by mouth daily Active umeclidinium-vi lanteroL (ANORO ELLIPTA) 62.5-25 mcg/actuation blister with device Inhale 1 puff daily 30 each 11 Active Active Problems Problem Noted Date Diagnosed Date Disorder of lung 01/12/2014 Encounters Date Type Department Care Team Description 03/24/2024 Orders Only [facility] Medical Group Pulmonary at [address] [phone] Enrrique Elaine MD 03/23/2024 Telephone [facility] Medical Group Pulmonary at [address] [phone] Jennifer Zhao LPN Med Management 03/19/2024 1:45 PM MEDICAL COLLECTOR Lab [address] Chronic obstructive pulmonary disease, unspecified COPD type (HCC) 03/19/2024 1:00 PM MEDICAL COLLECTOR Office Visit [facility] Medical Group Pulmonary at [address] [phone] Enrrique Elaine MD Chronic obstructive pulmonary disease, unspecified COPD type (HCC) (Primary Dx); Cigarette nicotine dependence without complication from Last 3 Months Surgical History Surgery Date Site/Laterality Comments CHOLECYSTECTOMY Medical History Medical History Date Comments COPD (chronic obstructive pulmonary disease) (HC C) Abdominal aneurysm (HCC) Family History Medical History Relation Name Comments Abdominal Aortic Aneurysm Father Heart disease Father Family history of cardiac disorder - (Added by Conv) Hypertension Father Family history of hypertension - (Added by Conv) Hypertension Mother Family history of hypertension - (Added by Conv) Kidney failure Mother Relation Name Status Comments Father Mother Social History Tobacco Use Types Packs/Day Years Used Date Smoking Tobacco: Some Days Cigarettes 0.1 59.1 Started: 1966 Tobacco Cessation:Ready to Q uit: Not Asked; Counseling Given: Not Answered Sex and Gender Information Value Date Recorded Sex Assigned at Not on file Legal Sex Male 11:02 AM MEDICAL COLLECTOR Gender Identity Not on file Sexual Orientation Not on file Obstetrics History Last Filed Vital Signs Vital Sign Reading Time Taken Comments Blood Pressure 128/75 03/19/2024 12:52 PM MEDICAL COLLECTOR Pulse 63 03/19/2024 12:52 PM MEDICAL COLLECTOR Temperature 36.6 C (97.9 F) 03/19/2024 12:52 PM MEDICAL COLLECTOR Respiratory Rate - - Oxygen Saturation 94% 03/19/2024 12:52 PM MEDICAL COLLECTOR Inhaled Oxygen Concentration - - Weight 70.9 kg (156 lb 3.2 oz) 03/19/2024 12:52 PM MEDICAL COLLECTOR Height 170.2 cm (5' 7 ) 03/19/2024 12:52 PM MEDICAL COLLECTOR Body Mass Index 24.46 03/19/2024 12:52 PM MEDICAL COLLECTOR Plan of Treatment Health Maintenance Due Date Last Done Comments Colon Cancer Screening-Colonoscopy 1950 Depression Screening 1950 Fall Risk Assessment 1950 Hepatitis C Screening 1950 DTaP/Tdap/Td Vaccine (1 - Tdap) 1960 Hepatitis B Screening 12/09/1967 Zoster Vaccine (1 of 2) 12/09/1999 Well Visit 65+ 2014 Covid-19 Vaccine (2023-2 5 season) 2024 12/26/2023, 01/16/2023, 07/18/2022, Additional history exists Pneumococcal vaccine 65+ Completed 02/14/2017, 12/10 Abdominal Aortic Aneurysm (A AA) Screen Completed 08/26/2023 Influenza Vaccine Completed 12/26/2023, , 01/12/2022, Additional history exists Procedures Procedure Name Priority Date/Time Associated Diagnosis Comments DIFFERENTIAL AUTO Routine 03/19/2024 1:4 5 PM MEDICAL COLLECTOR Chronic obstructive pulmonary disease, unspecified COPD type (HCC) CBC WITH AUTO DIFFERENTIAL Routine 03/19/2024 1:45 PM MEDICAL COLLECTOR Chronic obstructive pulmonary disease, unspecified COPD type (HCC) from Last 3 Months Results * Differential, auto (03/19/2024 1:45 PM MEDICAL COLLECTOR) Neutrophil abs 3.3 1.5 - 6.5 K/cumm Imm gran abs 0.0 0.0 - 0.1 K/cumm [facility] (RA) Lymphocyte abs 1.1 0.8 - 3.3 K/cumm [facility] (RA) Monocyte abs 0.5 0.2 - 0.8 K/cumm [facility] (RA) Eosinophil abs 0.2 0.0 - 0.5 K/cumm [facility] (RA) Basophil abs 0.0 0.0 - 0.1 K/cumm [facility] (RA) Neutrophil pct 63.0 % [facility] (RA) Comment: Interpretive Data Percent cell count reference ranges are not reported, since discordance with absolute values may lead to misinterpretation of CBC data. Current Interpretive Data was last revised on 2017. Imm gran pct 0.2 % [facility] (RA) Comment: Interpretive Data Percent cell count reference ranges are not reported, since discordance with absolute values may lead to misinterpretation of CBC data. Current Interpretive Data was last revised on 2017. Lymphocyte pct 21.2 % [facility] (RA) Comment: Interpretive Data Percent cell count reference ranges are not reported, since discordance with absolute values may lead to misinterpretation of CBC data. Current Interpretive Data was last revised on 2017. Monocyte pct 10.3 % [facility] (RA) Comment: Interpretive Data Percent cell count reference ranges are not reported, since discordance with absolute values may lead to misinterpretation of CBC data. Current Interpretive Data was last revised on 2017. Eosinophil pct 4.7 % [facility] (RA) Comment: Interpretive Data Percent cell count reference ranges are not reported, since discordance with absolute values may lead to misinterpretation of CBC data. Current Interpretive Data was last revised on 2017. Basophil pct 0.6 % [facility] (RA) Comment: Interpretive Data Percent cell count reference ranges are not reported, since discordance with absolute values may lead to misinterpretation of CBC data. Current Interpretive Data was last revised on 2017. Blood 03/19/2024 1:45 PM MEDICAL COLLECTOR 03/19/2024 3:36 PM MEDICAL COLLECTOR us Enrrique Elaine MD LAB BLOOD ORDERABLES Final Resul t [facility] (RA) 1 [facility] Department [place] [address] * CBC with auto differential (03/19/2024 1:45 PM MEDICAL COLLECTOR) WBC 5.2 3.8 - 9.9 K/cumm Hgb 15.0 13.0 - 17.5 g/dL [facility] (RA) Hct 44.0 38.9 - 50.3 % [facility] (RA) Plt 158 150 - 400 K/cumm [facility] (RA) MPV 10.5 9.1 - 12.3 fL [facility] (RA) RBC 4.67 4.30 - 5.80 M/cumm [facility] (RA) MCV 94.2 81.3 - 96.4 fL [facility] (RA) MCH 32.1 27.1 - 33.3 pg [facility] (RA) MCHC 34.1 32.3 - 35.7 g/dL [facility] (RA) RDW CV 13.5 11.1 - 14.9 % [facility] (RA) RDW SD 47.0 35.7 - 48.1 fL [facility] (RA) NRBC abs 0.00 0.00 - 0.01 K/cumm [facility] (RA) Blood 03/19/2024 1:45 PM MEDICAL COLLECTOR 03/19/2024 3:36 PM MEDICAL COLLECTOR us Enrrique Elaine MD LAB BLOOD ORDERABLES Final Resul t [facility] (RA) 1 [facility] Department [place] [address] from Last 3 Months Insurance MEDICARE FORMERLY [facility] BLUE ACCESS [place] Care Teams Vp Software Support Relationship Specialty Start Date End Date Aguilar Pinedo DO [address] [place] [address] PCP - General Family Medicine 08/26/23
--- OUTSIDE RECORDS SUMMARY | 2024-05-04 16:25 | XMS_ITS | Encounter Summary ---
Author Organization [facility] Address [address] [place] [address] Care Team Providers Care V Belt Builder Name Role Phone Brayden Stroud MD Primary Care Provider Marcelo Lozano MD Un[facility] Shobha Sahni COMBINING MACHINE OPERATOR Primary Care Provider [phone] Nusrat Dutton MD Unavailable Encounter Details Date Type Department Care Team (Late st Contact Info) Description 01/08/2018 Abstract [facility] [address] [place] [phone] Marcelo Marcum MD Social History Tobacco Use Types Packs/Day Years Used Date Smoking Tobacco: Every Day Cigarettes Smokeless Tobacco: Never Sex and Gender Information Value Date Recorded Sex Assigned at Not on file Legal Sex Male 2:41 PM CDT Gender Identity Not on file Sexual Orientation Not on file documented as of this encounter Plan of Treatment Upcoming Encounters Date Type Department Care Team (Late st Contact Info) Description 05/20/2024 12:[address] [facility] [address] [place] [address] Nusrat Dutton MD [address] [place] [address] 05/20/2024 1:[address] [facility] [address] [place] [address] Nusrat Dutton MD [address] [place] [address] 06/01/2024 12:45 PM CDT Office Visit [facility] [place] [address] Nusrat Dutton MD [address] [place] [address] documented as of this encounter Procedures Procedure Name Priority Date/Time Associated Diagnosis Comments LIPID PANEL Routine 01/08/2018 documented in this encounter Results * LIPID PANEL (01/08/2018) CHOLESTEROL 174 HDL 108 TRIGLYCERIDES 41 CHOL/HDL RATIO 1.6 LDL (CALCULATED) 58 GPT/ALT 36 01/08/2018 us Doc [facility] Abstract LABORATORY Final Result documented in this encounter Visit Diagnoses Not on filedocumented in this encounter Care Teams V Belt Builder Relationship Specialty Start Date End Date Brayden Stroud MD PCP - General SURGERY 10/11/17 10/05/20 Shobha Conklin FNP [facility] [address] [place] [address] PCP - General NURSE PRACTITIONER 10/06/20 Marcelo Marcum MD [employer] Numerical Control Operator CARDIOVASCULAR DISEASE 10/11/17 06/26/23 Nusrat Dutton MD [address] [place] [address] Consulting Physician CARDIOVASCULAR DISEASE 06/27/23 documented as of this encounter
--- OUTSIDE RECORDS SUMMARY | 2024-05-04 16:25 | XMS_ITS | Encounter Summary ---
Author Organization [facility] Address [address] [place] [address] Care Team Providers Care Education Faculty Member Name Role Phone Marcelo Marcum MD Un[facility] Shobha Sahni [facility] Primary Care Provider [phone] Nusrat Dutton MD Unavailable Encounter Details Date Type Department Care Team (Late Contact Info) Description 02/11/2023 Abstract [facility] [address] [place] [phone] Marcelo Marcum MD Social History Tobacco Use [...] 05/20/2024 12:[address] [place] [address] Nusrat Dutton MD [address] [place] [address] 05/20/2024 1:30 PM CDT Appointment [facility] [address] [facility] [place] [address] Nusrat Dutton MD [address] [place], [place] [phone] 06/01/2024 12:45 PM CDT Office Visit [facility] [address] [place] [phone] Nusrat Dutton MD [address] [place], [place] [phone] documented as of this encounter Procedures Procedure Name Priority Date/Time Associated Diagnosis Comments CMP (ABSTRACTED LAB) Routine 02/04/2023 CBC (OUTSIDE LAB) Routine 02/04/2023 documented in this encounter Results * (ABNORMAL) CMP (ABSTRACTED LAB) (02/04/2023) SODIUM S/P/B 144 136 - 145 POTASSIUM S/P/B 4.1 3.5 - 5.1 CHLORIDE S/P/B 106 98 - 108 CO2 35 21 - 32 BUN 24 7 - 18 CREATININE S/P/B 1.34(A) 0.7 - 1.3 EGFR NON-AFR. AMER. 52 <=90 CALCIUM S/P/B 9.0 8.5 - 10.1 GLUCOSE 92 70 - 99 mg/dL TOTAL PROTEIN S/P/B 6.5 6.4 - 8.2 ALBUMIN S/P/B 3.4(A) 3.4 - 5.0 AST 20 15 - 37 ALT 28 16 - 63 ALKALINE PHOSPHATASE S/P/B 77 46 - 116 BILIRUBIN TOTAL S/P/B 0.7 0.00 - 1.00 02/04/2023 Aguilar Pinedo DO LAB-OUTSIDE/ABSTRACTED Final R esult * CBC (OUTSIDE LAB) (02/04/2023) WBC 4.4 4.8 - 10.8 HGB 14.9 12.4 - 15.3 HCT 43.6 37.0 - 46.0 PLT 143 150 - 420 RBC 4.53 4.70 - 6.10 MCV 96.2 78.0 - 102.0 MCH 32.9 27.0 - 31.0 MCHC 34.2 32.0 - 36.0 RDW 12.9 11.6 - 14.4 MPV 9.3 8.7 - 11.0 NRBC % 0.0 0 - 0.00 IMMATURE GRANS % 0.5 0.0 - 0.0 NEUTROPHILS % 59.4 50.0 - 70.0 LYMPHOCYTES % 21.2 18.0 - 42.0 MONOCYTES % 10.4 2.0 - 11.0 EOSINOPHILS % 7.4 1.0 - 6.0 BASOPHILS % 1.1 0.0 - 1.0 ABS. NUCLEATED RBC'S 0.00 0.00 - 0.00 ABS. IMMATURE GRANULOCYTES 0.02 0.00 - 0.00 # NEUTROPHILS 2.6 1.7 - 7.2 ABS. LYMPHOCYTES 0.94 1.10 - 4.50 ABS. MONOCYTES 0.46 0.10 - 0.90 ABS. EOSINOPHILS 0.33 0.02 - 0.50 ABS. BASOPHILS 0.05 0.00 - 0.10 02/04/2023 Aguilar Pinedo DO LAB-OUTSIDE/ABSTRACTED Final R esult documented in this encounter Visit Diagnoses Not on filedocumented in this encounter Care Teams Education Faculty Member Relationship Specialty Start Date End Date Shobha Conklin FNP [facility] [place] [address] PCP - General NURSE PRACTITIONER 10/06/20 Marcelo Marcum MD [place] Internal Audit Consultant CARDIOVASCULAR DISEASE 10/11/17 06/26/23 Nusrat Dutton MD [address] [place] [address] Consulting Physician CARDIOVASCULAR DISEASE 06/27/23 documented as of this encounter
--- OUTSIDE RECORDS SUMMARY | 2024-05-04 16:25 | XMS_ITS | Encounter Summary ---
Author Organization [facility] Address [address] [place] [address] Care Team Providers Care Natural Gas Inspector Name Role Phone Brayden Stroud MD Primary Care Provider Marcelo Lozano MD Unavailable [facility] Shobha Sahni RN CVICU Primary Care Provider [phone] Nusrat Dutton MD Unavailable Encounter Details Date Type Department Care Team (Late st Contact Info) Description 10/22/2017 Abstract [facility] [address] [place] [phone] Marcelo Marcum MD Social History Tobacco Use [...] CDT [facility]ointment [facility] [address] [place] [address] Nusrat Dutton MD [address] [place] [address] 05/20/2024 1:[address] [facility] [address] [place] [address] Nusrat Dutton MD [address] [place] [address] 06/01/2024 12:45 PM CDT Office Visit [facility] [place] [phone] Nusrat Dutton MD [address] [place] [address] documented as of this encounter Visit Diagnoses Not on filedocumented in this encounter Care Teams Natural Gas Inspector Relationship Specialty Start Date End Date Brayden Stroud MD PCP - General SURGERY 10/11/17 10/05/20 Shobha Conklin FNP [facility] [place] [address] PCP - General NURSE PRACTITIONER 10/06/20 Marcelo Marcum MD [place] Market Researcher CARDIOVASCULAR DISEASE 10/11/17 06/26/23 Nusrat Dutton MD [address] [place] [address] Consulting Physician CARDIOVASCULAR DISEASE 06/27/23 documented as of this encounter
--- OUTSIDE RECORDS SUMMARY | 2024-05-04 16:25 | XMS_ITS | Clinical Summary ---
Author Organization [facility] Care Team Providers Care Integration Manager Name Role Phone Shobha Conklin APRN Primary Care Provider +1- [phone] Social History Tobacco Use Types Packs/Day Years Used Date Smoking Tobacco: Never Assessed Sex and Gender Information Value Date Recorded Sex Assigned at Not on file Legal Sex Male 5:38 PM CDT Gender Identity Not on file Sexual Orientation Not on file Plan of Treatment Health Maintenance Due Date Last Done Comments Hepatitis C Virus (HCV) Screening 1950 TdaP Immunization 1950 Cologuard 12/09/1999 Immunochemical Fecal Occult Blood 12/09/1999 Pneumococcal Immunization (5 0+ years) (1 of 1 - PCV) 12/09/1999 Zoster Immunization (1 of 2) 12/09/1999 Influenza Immunization (#1) 2023 SARS-COV-2 Immunization ( - 2023- season) 2023 Colonoscopy 09/03/2024 09/03/2014 Colorectal Cancer Screening 09/03/2024 Respiratory Syncytial Virus (RSV) Immunization (Adult) (1 - 1-dose 75+ series) 2024 09/03/2014 Hepatitis B Immunization Aged Out No longer eligible based on patient's age to complete this topic Meningococcal Immunization (ACWY) Aged Out No longer eligible based on patient's age to complete this topic Rotavirus Immunization Aged Out No lo nger eligible based on patient's age to complete this topic Procedures Procedure Name Priority Date/Time Associated Diagnosis Comments COLONOSCOPY Routine 09/03/2014 from Last 3 Months or Most Recently Relevant to Health Maintenance Results * COLONOSCOPY (09/03/2014) us Wilfrido T Klyenny DO PROCEDURE/MINOR SURGICAL ORDERA BLES Final Result from Last 3 Months or Most Recently Relevant to Health Maintenance Care Teams Integration Manager Relationship Specialty Start Date End Date Shobha Conklin APRN [address] [place] [address] PCP - General Family Medicine 04/26/21
--- OUTSIDE RECORDS SUMMARY | 2024-05-04 16:25 | XMS_ITS | Referral Summary ---
Author Organization [facility] Medical Office Building B Address [address] [place] [phone] Care Team Providers Care Electrician Maintenance Name Role Phone OwenjessaAguilarrish Primary Care Provider Encounters Date Type Department Care Team Description 03/24/2024 Orders Only [facility] Medical Group Pulmonary at [address] [phone] Enrrique Elaine MD 03/23/2024 Telephone [facility] Medical Group Pulmonary at [address] [phone] Jennifer Zhao LPN Med Management 03/19/2024 1:45 PM BACK ROLLER Lab [address] Chronic obstructive pulmonary disease, unspecified COPD type (HCC) 03/19/2024 1:00 PM BACK ROLLER Office Visit [facility] Medical Group Pulmonary at [address] [phone] Enrrique Elaine MD Chronic obstructive pulmonary disease, unspecified COPD type (HCC) (Primary Dx); Cigarette nicotine dependence without complication from Last 3 Months Allergies Active Allergy Reactions Criticality Noted Date [...] 1 tablet (50 mcg total) by mouth director cost before breakfast Active losartan-hydroC HLOROthiazide (HYZAAR) 100-12.5 [...] Inhale 1 puff daily 30 each 11 5 Active Active Problems Problem Noted Date Diagnosed Date Disorder of lung 01/12/2014 Social History Tobacco Use Types Packs/Day Years Used Date Smoking Tobacco: Some Days Cigarettes 0.1 59.1 Started: 1966 Tobacco Cessation:Ready to Q uit: Not Asked; Counseling Given: Not Answered Sex and Gender Information Value Date Recorded Sex Assigned at Not on file Legal Sex Male 11:02 AM BACK ROLLER Gender Identity Not on file Sexual Orientation Not on file Last Filed Vital Signs Vital Sign Reading Time Taken Comments Blood Pressure 128/75 03/19/2024 12:52 PM BACK ROLLER Pulse 63 03/19/2024 12:52 PM BACK ROLLER Temperature 36.6 C (97.9 F) 03/19/2024 12:52 PM BACK ROLLER Respiratory Rate - - Oxygen Saturation 94% 03/19/2024 12:52 PM BACK ROLLER Inhaled Oxygen Concentration - - Weight 70.9 kg (156 lb 3.2 oz) 03/19/2024 12:52 PM BACK ROLLER Height 170.2 cm (5' 7 ) 03/19/2024 12:52 PM BACK ROLLER Body Mass Index 24.46 03/19/2024 12:52 PM BACK ROLLER Plan of Treatment Not on file Procedures Procedure Name Priority Date/Time Associated Diagnosis Comments DIFFERENTIAL AUTO Routine 03/19/2024 1:4 5 PM BACK ROLLER Chronic obstructive pulmonary disease, unspecified COPD type (HCC) CBC WITH AUTO DIFFERENTIAL Routine 03/19/2024 1:45 PM BACK ROLLER Chronic obstructive pulmonary disease, unspecified COPD type (HCC) from Last 3 Months Results * Differential, auto (03/19/2024 1:45 PM BACK ROLLER) Neutrophil abs 3.3 1.5 - 6.5 K/cumm [...] revised on 2017. Monocyte pct 10.3 % [facility] ([facility]) Comment: Interpretive Data [...] revised on 2017. Blood 03/19/2024 1:45 PM BACK ROLLER 03/19/2024 3:36 PM BACK ROLLER Enrrique Elaine MD LAB BLOOD ORDERABLES Final Resul t [facility] ([facility]) [facility] [place] [address] * CBC with auto differential (03/19/2024 1:45 PM BACK ROLLER) WBC 5.2 3.8 - 9.9 K/cumm Hgb [...] [facility] ([facility]) Blood 03/19/2024 1:45 PM BACK ROLLER 03/19/2024 3:36 PM BACK ROLLER Enrrique Elaine MD LAB BLOOD ORDERABLES Final Resul t [facility] [place] [address] from Last 3 Months Insurance MEDICARE [facility] Address: [address] [phone] [employer] [place] [employer] [place] Care Teams Electrician Maintenance Relationship Specialty Start Date End Date Aguilar Pinedo DO [address] [place] [address] PCP - General Family Medicine 08/26/23
--- OUTSIDE RECORDS SUMMARY | 2024-05-04 16:25 | XMS_ITS | Clinical Summary ---
Author Organization [facility] Address [address] [place] [address] Care Team Providers Care Geriatric Nursing Assistant Name Role Phone Shobha Conklin Primary Care Provider Nusrat Dutton MD Unavailable Allergies Active Allergy Reactions Criticality Noted Date Comments Aspirin GI Upset 11/01/2017 Medications amlodipine 10 MG tablet Take 1 tablet (10 mg total) by mouth daily. Active levothyroxine 50 MCG tablet Take 1 tablet (50 mcg total) by mouth every morning. Active aspirin 81 MG chewable tablet Chew 1 tablet (81 mg total) by mouth daily. Active Multiple Vitamins-Minera ls (MULTIVITAMIN ADULT OR) Active pravastatin 40 MG tablet Take 1 tablet (40 mg total) by mouth daily. 90 tablet 3 05/23/2018 Active Losartan Potassium-HCTZ 100-12.5 MG Tab Take 1 tablet by mouth daily. 90 tablet 3 05/23/2018 Active PROAIR HFA 108 (90 Base) MCG/ACT inhaler INHALE 1 PUFF PO Q 4 HOURS PRF SOB OR WHEEZING . GEF PROAIR HFA 09/10/2019 Active SYMBICORT 80-4.5 MCG/ACT inhaler INHALE 2 PUFFS BY MOUTH EVERY 12 HOURS 09/06/2020 Active metoprolol succinate ER 50 MG 24 hr tablet Take 1 tablet (50 mg total) by mouth daily. Active vitamin C 500 MG tablet Take 1 tablet (500 mg total) by mouth daily. Active B Complex-C Tab tablet Take 1 tablet by mouth daily. Active cholecalciferol (VITAMIN D3) 125 MCG (5000 UT) Tab Take 1 tablet (5,000 Units total) by mouth daily. Active diphenhydrAMINE 50 MG tablet Take 1 tablet (50 mg total) by mouth nightly as needed for Itching. Active acetaminophen 500 MG tablet Take 1 tablet (500 mg total) by mouth every 6 (six) hours as needed for Pain. Active traZODone 150 MG tablet 06/30/2021 Active Active Problems Problem Noted Date Diagnosed Date Current smoker 03/12/2018 Hypertension Coronary artery disease Dyspnea Sleep apnea Obstructive sleep apnea COPD (chronic obstructive pu lmonary disease) ([facility]) Family History Medical History Relation Comments Aneurysm Father Relation Status Comments Father Social History Tobacco Use Types Packs/Day Years Used Date Smoking Tobacco: Every Day Cigarettes Smokeless Tobacco: Never Tobacco Cessation:Ready to Q uit: Not Asked; Counseling Given: Not Answered Alcohol Use Standard Drinks/Week Comments Yes 0 (1 standard drink = 0.6 oz pur e alcohol) 12/week AUDIT-C Answer Date Recorded Frequency of Alcohol [...] Sign Reading Time Taken Comments Blood Pressure 130/80 11/20/2023 9:44 AM CDT Pulse 59 11/20/2023 9:44 AM CDT Temperature 36.4 C (97.5 F) 08/21/2021 12:37 PM CDT Respiratory Rate 16 11/20/2023 9:44 AM CDT Oxygen Saturation 95% 11/20/2023 9:44 AM CDT Inhaled Oxygen Concentration - - Weight 71.2 kg (157 lb) 11/20/2023 9:44 AM CDT Height 170.2 cm (5' 7 ) 11/20/2023 9:44 AM CDT Body Mass Index 24.59 11/20/2023 9:44 AM CDT Plan of Treatment Upcoming Encounters Date Type Department Care Team (Late st Contact Info) Description 05/20/2024 12:[address] [facility] [address] [place] [address] Nusrat Dutton MD [address] [place] [address] 05/20/2024 1:30 PM CDT Appointment [facility] [address] [facility] [place] [address] Nusrat Dutton MD [address] [place], [place] [phone] 06/01/2024 12:45 PM CDT Office Visit [facility] [address] [facility] [place] [phone] Nusrat Dutton MD [address], [place] [phone] Health Maintenance Due Date Last Done Comments ASCVD Statin 1950 Hepatitis C 12/09/1967 DTaP, Tdap and Td Vaccines (1 - Tdap) 1968 Zoster Vaccines (1 of 2) 12/09/1999 RSV Immunization or 60+ Years (1 - Risk 60-74 years 1-dose series) 2009 Annual Medicare Wellness Visit 2014 ASCVD LDL 10/25/2022 10/25/2021, 01/08/2018 COVID-19 Vaccine ( season) 2023 07/28/2021, 12/26/2020, 05/06/2020, Additional history exists Influenza Adult (#1) 2023 01/06/2018, 02/14/2017, 01/02/2015 PHQ-2 (Physician E[place]) 03/11/2024 Colorectal Cancer Screening Colonoscopy (10 Years) 08/22/2031 08/21/2021, 08/21/2021 Pneumococcal Vaccine: 65+ Years Completed 02/14/2017, 01/02/2015 AAA SCREENING Completed 11/01/2020 Meningococcal B Vaccine Aged Out No l onger eligible based on patient's age to complete this topic Meningococcal Vaccine Aged Out No saw rosario eligible based on patient's age to complete this topic RSV Immunizations Under 20 Months Aged Out No longer eligible based on patient's age to complete this topic Procedures Procedure Name Priority Date/Time Associated Diagnosis Comments LIPID PANEL Routine 10/25/2021 COLONOSCOPY Routine 08/21/2021 11:23 AM CDT USV AAA SCREENING Routine 11/01/2020 7:3 3 AM CDT Primary hypertension Coronary artery disease involving sokaogon coronary artery of sokaogon heart without angina pectoris Current smoker Dyspnea on exertion Obstructive sleep apnea from Last 3 Months or Most Recently Relevant to Health Maintenance Results * LIPID PANEL (10/25/2021) CHOLESTEROL 148 0 - 200 HDL 81 40 - 60 TRIGLYCERIDES 51 0 - 150 LDL (CALCULATED) 57 <130 10/25/2021 us Default History Genericprovider LABORATORY Final Result * USV AAA SCREENING (11/01/2020 7:33 AM CDT) Anatomical Region Laterality Modality NA Ultrasound 11/01/2020 10:1 7 AM CDT Impressions 11/01/2020 10:20 AM CDT IMPRESSION: Aneurysmal dilatation of the distal abdominal aorta measuring up to 3.5 cm. Per ACR guidelines, follow-up in 2 years is recommended to evaluate for interval change. Referred By: THADDEUS KOHLI Interpreted By: Macario Brito DO, 11/01/2020 10:17 AM Narrative 11/01/2020 10:20 AM CDT ULTRASOUND OF THE AORTA CLINICAL HISTORY: Screening for abdominal aortic aneurysm. TECHNIQUE: Transverse and longitudinal grayscale, color Doppler, and spectral waveform images were acquired over the abdominal aorta. COMPARISON: None available. FINDINGS: The obtained images demonstrate mild irregularity throughout the abdominal aorta. Normal color flow seen throughout with appropriate waveforms on spectral waveform analysis. Measurements are as follows: Proximal: 2.0 cm Mid: 2.7 x 2.6 cm Distal: 3.2 x 3.5 cm Right iliac: 1.5 x 1.3 cm Left iliac: 1.3 x 1.2 cm Procedure Note Macario Brito DO - 11/01/2020 ULTRASOUND OF THE AORTA CLINICAL HISTORY: Screening for abdominal aortic aneurysm. TECHNIQUE: Transverse and longitudinal grayscale, color Doppler, andspectral waveform images were acquired over the abdominal aorta. COMPARISON: None available. FINDINGS: The obtained images demonstrate mild irregularity throughout the abdominalaorta. Normal color flow seen throughout with appropriate waveforms onspectral waveform analysis. Measurements are as follows: Proximal: 2.0 cm Mid: 2.7 x 2.6 cm Distal: 3.2 x 3.5 cm Right iliac: 1.5 x 1.3 cm Left iliac: 1.3 x 1.2 cm IMPRESSION: Aneurysmal dilatation of the distal abdominal aorta measuring up to 3.5cm. Per ACR guidelines, follow-up in 2 years is recommended to evaluatefor interval change. Referred By: THADDEUS KOHLI Interpreted By: Macario Brito DO, 11/01/2020 10:17 AM us Thaddeus Kohli APRN, SENIOR DIRECTOR MARKETING-C VASC Final Result from Last 3 Months or Most Recently Relevant to Health Maintenance Insurance MEDICARE [facility] MEDICARE [facility] Care Teams Geriatric Nursing Assistant Relationship Specialty Start Date End Date Shobha Con[place]lin [place] [address] PCP - General NURSE PRACTITIONER 10/06/20 Nusrat Dutton MD [address] [place] [address] Consulting Physician CARDIOVASCULAR DISEASE 06/27/23
[2024-05-06 03:04] LABS: Total Triiodothyronine (T3) 96 ng/dL (76-181)
[2024-05-06 04:08] LABS: Vitamin D 25 Hydroxy 53 ng/mL (30-100)
== END 2024-05-04 14:06 | disposition home or self-care (01) ==
LOC: CHSLAB 14:06
PROVIDERS: PCP Family Medicine; Visit Provider Nurse Practitioner Family
DX: R79.89 Other specified abnormal findings of blood chemistry (principal); E03.9 Hypothyroidism, unspecified; I10 Essential (primary) hypertension; Z13.6 Encounter for screening for cardiovascular disorders; E78.5 Hyperlipidemia, unspecified; Z79.899 Other long term (current) drug therapy; Z12.5 Encounter for screening for malignant neoplasm of prostate
CPT/HCPCS: 36415; 80053; 80061; 82306; 84153; 84439; 84443; 84480; 85025; G0103

== ENCOUNTER 2024-12-08 10:46 | Outpatient (CLI) | payer MEDICARE, BC, SELFPAY ==
--- OUTSIDE RECORDS SUMMARY | 2024-12-08 11:37 | XMS_ITS | Clinical Summary ---
Author Organization [facility] Medical Office Building B Address [address] [place] [phone] Care Team Providers Care Floral Arranger Name Role Phone Aguilar Pinedoh Primary Care Provider Allergies Active Allergy Reactions Criticality Noted Date Comments Aspirin Medications amLODIPine (NORVASC) 10 mg tablet Take 1 tablet (10 mg total) by mouth daily Active aspirin 81 mg chewable tablet Take 1 tablet (81 mg total) by mouth daily Active diphenhydrAMINE (BENADRYL) 50 mg tablet Take 1 tablet (50 mg total) by mouth nightly as needed Active levothyroxine (SYNTHROID) 50 mcg tablet Take 1 tablet (50 mcg total) by mouth resolution rep before breakfast Active losartan-hydroC HLOROthiazide (HYZAAR) 100-12.5 [...] puff daily 30 each 11 5 Active ProAir HFA 90 mcg/actuation inhaler Inhale 2 puffs every 4 (four) hours as needed for wheezing 8 g 11 Active Active Problems Problem Noted Date Diagnosed Date Disorder of lung 01/12/2014 Encounters Date Type Department Care Team Description 09/14/2024 Results Follow-Up [facility] Medical Group Pulmonary at [address] [place] [address] Lung Cancer Screening from Last 3 Months Surgical History Surgery Date Site/Laterality Comments CHOLECYSTECTOMY Medical History Medical History Date Comments COPD (chronic obstructive pulmonary disease) Abdominal aneurysm Family History Medical History Relation Name Comments [...] Used Date Smoking Tobacco: Some Days Cigarettes 1 59.7 Started: 1966 Tobacco Cessation:Ready to Q uit: Not Asked; Counseling Given: Not Answered Sex and Gender Information Value Date Recorded Sex Assigned at Not on file 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 CUTTER Gender Identity Not on file Sexual Orientation Not on file Obstetrics History Last Filed Vital Signs Vital Sign Reading Time Taken Comments Blood Pressure 144/86 06/22/2024 10:00 AM CDT Pulse 53 06/22/2024 10:00 AM CDT Temperature 36.7 C (98.1 F) 06/22/2024 10:00 AM CDT Respiratory Rate 18 06/22/2024 10:00 AM CDT Oxygen Saturation 93% 06/22/2024 10:00 AM CDT Inhaled Oxygen Concentration - - Weight 73.9 kg (163 lb) 08/17/2024 1:44 PM CDT Height 170.2 cm (5' 7) 08/17/2024 1:44 PM CDT Body Mass Index 25.53 08/17/2024 1:44 PM CDT Plan of Treatment Health Maintenance Due Date Last Done Comments Colon Cancer Screening-Colonoscopy 1950 Depression Screening 1950 Fall Risk Assessment 1950 Hepatitis C Screening 1950 DTaP/Tdap/Td Vaccine (1 - Tdap) 1960 Hepatitis B Screening 12/09/1967 Zoster Vaccine (1 of 2) 12/09/1999 Well Visit 65+ 2014 Covid-19 Vaccine (9 - 4-2 5 season) 2024 12/26/2023, 01/16/2023, 07/18/2022, Additional history exists Influenza Vaccine (#1) 2024 , 01/16/2023, 01/12/2022, Additional history exists Lung Cancer Screening 08/18/2025 08/17/2024 Pneumococcal vaccine 65+ Completed 02/14/2017, 12/10 Abdominal Aortic Aneurysm (A AA) Screen Completed 08/26/2023 Procedures Procedure Name Priority Date/Time Associated Diagnosis Comments CT LUNG CANCER SCREENING Schedule Routine, Read Routine (OP Routine) 08/17/2024 1:44 PM CDT Nicotine dependence, cigarettes, uncomplicated from Last 3 Months or Most Recently Relevant to Health Maintenance Results * CT Lung Cancer Screening (08/17/2024 1:44 PM CDT) Anatomical Region Laterality Modality Chest N/A Computed Tomogra phy 09/01/2024 9:19 AM CDT Narrative 09/01/2024 9:32 AM CDT EXAM DESCRIPTION: CT LUNG CANCER SCREENING REASON FOR STUDY: Screening CT of the chest in a current smoker with a 59 pack year smoking history. Additional history: Shortness of breath. TECHNIQUE: Low dose CT scan of the chest was performed without intravenous contrast using helical scanning technique. The exam extends from the lung apices through the lung bases. Automatic exposure control was used as a dose optimization technique. NOTE: This study was performed for the specific purposes of lung cancer screening and is not an alternative to diagnostic chest CT. RADIATION DOSE: CT dose index volume (CTDIvol) = 1.71 mGy COMPARISON: CT chest 08/15/2023 FINDINGS: SMOKING RELATED LUNG DISEASE: Moderate centrilobular pulmonary emphysema. Bronchial wall thickening and secretions in the lower lobes. LUNG NODULES: New subpleural 3 mm right upper lobe nodule (axial image 114). Multiple additional nodules are stable, including a 4 mm right apical nodule (axial image 37), 2 mm right upper lobe nodule anteriorly (axial image 157), 5 mm nodule along the right major fissure (axial image 197), 3 mm perifissural nodule in the left lower lobe (axial image 132) and 2 mm left upper lobe nodule posteriorly (axial image 119). Stable lingular consolidation. Calcification granulomas in the right lower lobe. CORONARY ARTERY CALCIFICATION: Present. OTHER: Normal heart size. No mediastinal or hilar lymph node enlargement by size criteria. No acute findings in the visualized upper abdomen given low-dose technique. No acute skeletal abnormality. IMPRESSION: 1. New 3 mm right upper lobe pulmonary nodule. Additional pulmonary nodules are stable. 2. Stable lingular consolidation. 3. Pulmonary emphysema. Bronchial wall thickening and secretions in the lower lobes which could reflect chronic bronchitis. Lung-RADS category 2: Benign appearance or behavior. Recommendation: Low dose Screening CT of chest in 12 months. THIS IS AN ELECTRONICALLY VERIFIED FINAL REPORT 09/01/2024 9:32 AM - Electronically signed by Dino Villaseñor M.D. JR: Report ID: [id number] Reading Location: [id number] Procedure Note Dino Villaseñor MD - 09/01/2024 EXAM DESCRIPTION: CT LUNG CANCER SCREENING REASON FOR STUDY: Screening CT of the chest in a current smoker with a59 pack year smoking history. Additional history: Shortness of breath. TECHNIQUE: Low dose CT scan of the chest was performed without intravenous contrast using helical scanning technique. The exam extends from the lung apices through the lung bases. Automatic exposure control was used as adose optimization technique. NOTE: This study was performed for the specific purposes of lung cancer screening and is not an alternative to diagnostic chest CT. RADIATION DOSE: CT dose index volume (CTDIvol) = 1.71 mGy COMPARISON: CT chest 08/15/2023 FINDINGS: SMOKING RELATED LUNG DISEASE: Moderate centrilobular pulmonaryemphysema. Bronchial wall thickening and secretions in the lower lobes. LUNG NODULES: New subpleural 3 mm right upper lobe nodule (axial ). Multiple additional nodules are stable, including a 4 mm right apicalnodule (axial image 37), 2 mm right upper lobe nodule anteriorly (axial ), 5 mm nodule along the right major fissure (axial image 197), 3 mmperifissural nodule in the left lower lobe (axial image 132) and 2 mm left upper lobe nodule posteriorly (axial image 119). Stable lingular consolidation. Calcification granulomas in the right lower lobe. CORONARY ARTERY CALCIFICATION: Present. OTHER: Normal heart size. No mediastinal or hilar lymph nodeenlargement by size criteria. No acute findings in the visualized upper abdomen given low-dose technique. No acute skeletal abnormality. IMPRESSION: 1. New 3 mm right upper lobe pulmonary nodule. Additional pulmonarynodules are stable. 2. Stable lingular consolidation. 3. Pulmonary emphysema. Bronchial wall thickening and secretions in the lower lobes which could reflect chronic bronchitis. Lung-RADS category 2: Benign appearance or behavior. Recommendation: Low dose Screening CT of chest in 12 months. THIS IS AN ELECTRONICALLY VERIFIED FINAL REPORT 09/01/2024 9:32 AM - Electronically signed by Dino Villaseñor M.D. JR: Report ID: [id number] Reading Location: [place] [address] Enrrique Elaine MD IM CT PROCEDURES Final Result from Last 3 Months or Most Recently Relevant to Health Maintenance Insurance MEDICARE [facility] [email or web address] Care Teams Floral Arranger Relationship Specialty Start Date End Date Aguilar Pinedo DO [address] [place] [address] PCP - General Family Medicine 08/26/23
--- OUTSIDE RECORDS SUMMARY | 2024-12-08 11:37 | XMS_ITS | Clinical Summary ---
Author Organization [facility] Care Team Providers Care Vp Public Relations Name Role Phone Shobha Conklin DEB Primary Care Provider +1- [phone] Social History Tobacco Use Types Packs/Day Years Used Date Smoking Tobacco: Never Assessed Sex and Gender Information Value Date Recorded Sex Assigned at Not on file Legal Sex Male 5:38 PM CDT Gender Identity Not on file Sexual Orientation Not on file Plan of Treatment Health Maintenance Due Date Last Done Comments Hepatitis C Virus (HCV) Screening 1950 TdaP Immunization 1949 Cologuard 1994 Immunochemical Fecal Occult Blood 1994 Pneumococcal Immunization (5 0+ years) (1 of 1 - PCV) 12/09/1999 Zoster Immunization (1 of 2) 12/09/1999 Colonoscopy 09/03/2024 09/03/2014 Colorectal Cancer Screening 09/03/2024 Influenza Immunization (#1) 2024 SARS-COV-2 Immunization (1 - season) 2024 Respiratory Syncytial Virus (RSV) Immunization (Adult) (1 - 1-dose 75+ series) 2024 Hepatitis B Immunization Aged Out No longer eligible based on patient's age to complete this topic Human Papillomavirus (HPV) Immunization Aged Out No longer eligible b ased on patient's age to complete this topic Meningococcal Immunization (ACWY) Aged Out No longer eligible based on patient's age to complete this topic Rotavirus Immunization Aged Out No lo nger eligible based on patient's age to complete this topic Procedures Procedure Name Priority Date/Time Associated Diagnosis Comments COLONOSCOPY Routine 09/03/2014 from Last 3 Months or Most Recently Relevant to Health Maintenance Results * HM COLONOSCOPY (09/03/2014) Wilfrido Awad DO PROCEDURE/MINOR SURGICAL ORDERA BLES Final Result from Last 3 Months or Most Recently Relevant to Health Maintenance Care Teams Vp Public Relations Relationship Specialty Start Date End Date Shobha Conklin APRN [address] [place] [address] PCP - General Family Medicine 04/26/21
[2024-12-08 12:37] LABS: Anion Gap 6 mmol/L (4-12); Blood Urea Nitrogen 15 mg/dL (9-20); Carbon Dioxide 31 mmol/L (22-30); Chloride 101 mmol/L (98-107); Estimated Glomerular Filt Rate 58; Glucose 87 mg/dL (65-110); Osmolality Calculated 285 mOsm/kg (285-295); Potassium 4.1 mmol/L (3.4-5.0); Sodium 138 mmol/L (137-145)
[2024-12-08 12:38] LABS: Alanine Aminotransferase 20 U/L (6-50); Albumin Level 3.9 g/dL (3.5-5.1); Alkaline Phosphatase 78 U/L (38-126); Aspartate Amino Transferase 31 U/L (17-59); Bilirubin,Total 0.8 mg/dL (0.2-1.3); Calcium 9.6 mg/dL (8.4-10.2); Cholesterol 153 mg/dL (0-200); HDL Direct 93 mg/dL; Total Protein 7.2 g/dL (6.3-8.2); Triglycerides 69 mg/dL (<150)
== END 2024-12-08 10:47 | disposition home or self-care (01) ==
PROVIDERS: PCP Family Medicine
DX: R06.02 Shortness of breath (principal); E78.01 Familial hypercholesterolemia; I71.40 Abdominal aortic aneurysm, without rupture, unspecified; I11.9 Hypertensive heart disease without heart failure; I25.10 Atherosclerotic heart disease of native coronary artery without angina pectoris
CPT/HCPCS: 36415; 80053; 80061

== ENCOUNTER 2025-01-05 13:25 | Outpatient (CLI) | payer MEDICARE, BC, SELFPAY ==
--- NOTE | ~2025-01-05 | XR_ITS ---
EXAMINATION: XR shoulder RT min 2V, 01/05/2025 13:40 CDT HISTORY: M19.011 - Primary osteoarthritis, right shoulder COMPARISON: No comparisons available. Findings: No acute fracture or malalignment. No significant degenerative changes. Soft tissues unremarkable. Impression: No acute fracture or malalignment. Reviewed, dictated and finalized at location P. Impression: No acute fracture or malalignment.
--- OUTSIDE RECORDS SUMMARY | 2025-01-05 15:26 | XMS_ITS | Encounter Summary ---
Author Organization [facility] Address [address] [place] [address] Care Team Providers Care Bottomer Operator Name Role Phone Brayden Stroud MD Primary Care Provider Marcelo Lozano MD Unavailable [phone] Shobha Conklin Primary Care Provider [phone] Nusrat Dutton MD Unavailable Aguilar Pinedo DO Primary Care Provider [phone] Encounter Details Date Type Department Care Team (Late st Contact Info) Description 01/08/2018 Abstract [facility] [address] [place] [phone] Marcelo Marcum MD [address] [place] [phone] Social History Tobacco Use Types Packs/Day Years Used Date Smoking Tobacco: Every Day Cigarettes Smokeless Tobacco: Never Sex and Gender Information Value Date Recorded Sex Assigned at Male 05/20/2024 12:24 PM CDT Legal Sex Male 2:41 PM CDT Gender Identity Not on file Sexual Orientation Not on file documented as of this encounter Plan of Treatment Upcoming Encounters Date Type Department Care Team (Late st Contact Info) Description 07/02/2025 9:00 AM CDT Appointment [facility] Vascular Ultrasound - [facility] [place] [address] [place] [address] Nusrat Dutton MD [address] [place] [address] 07/02/2025 10:15 AM CDT Office Visit [facility] [address] [place] [address] Nusrat Dutton MD [address] [place] [address] documented as of this encounter Procedures Procedure Name Priority Date/Time Associated Diagnosis Comments LIPID PANEL Routine 01/08/2018 documented in this encounter Results * LIPID PANEL (01/08/2018) CHOLESTEROL 174 HDL 108 TRIGLYCERIDES 41 CHOL/HDL RATIO 1.6 LDL (CALCULATED) 58 GPT/ALT 36 01/08/2018 us Doc [facility] Abstract LABORATORY Final Result documented in this encounter Visit Diagnoses Not on filedocumented in this encounter Care Teams Bottomer Operator Relationship Specialty Start Date End Date Brayden Struod MD PCP - General SURGERY 10/11/17 10/05/20 Shobha Conklin FNP [address] [place] [address] PCP - General NURSE PRACTITIONER 10/06/20 06/02/24 Aguilar Pinedo DO [address] [place] [address] PCP - General FAMILY PRACTICE 06/03/24 Marcelo Marcum MD [address] [place] [address] [place]ard Temperature Control Inspector CARDIOVASCULAR DISEASE 10/11/17 06/26/23 Nusrat Dutton MD [address] [place] [address] Consulting Physician CARDIOVASCULAR DISEASE 06/27/23 documented as of this encounter
--- OUTSIDE RECORDS SUMMARY | 2025-01-05 15:26 | XMS_ITS | Encounter Summary ---
Author Organization [facility] Address [facility] [place] [address] Care Team Providers Care Senior Cost Accountant Name Role Phone Marcelo Marcum MD Unavailable [phone] Shobha Conklin Primary Care Provider [phone] Nusrat Dutton MD Unavailable Aguilar Pinedo DO Primary Care Provider [phone] Encounter Details Date Type Department Care Team (Late st Contact Info) Description 09/05/2022 MyChart Message Enc [facility] [address] [place], [place] [address] [facility], [facility] Provider Air Quality Message Social History [...] Info) Description 07/02/2025 9:00 AM CDT Appointment [facility] Vascular [facility] [address] [place], [place] [phone] Nusrat Dutton MD [address] [place] [address] 07/02/2025 10:15 AM CDT Office Visit [facility] [address] [place] [address] Nusrat Dutton MD [address] [place] [address] documented as of this encounter Visit Diagnoses Not on filedocumented in this encounter Care Teams Senior Cost Accountant Relationship Specialty Start Date End Date Shobha Conklin FNP [address] [place] [address] PCP - General NURSE PRACTITIONER 10/06/20 06/02/24 Aguilar Pinedo DO [address] [place] [address] PCP - General FAMILY PRACTICE 06/03/24 Marcelo Marcum MD [address] [place] [address] [place]am[place] Server Software Engineer CARDIOVASCULAR DISEASE 10/11/17 06/26/23 Nusrat Dutton MD [address] [place] [address] Consulting Physician CARDIOVASCULAR DISEASE 06/27/23 documented as of this encounter
--- OUTSIDE RECORDS SUMMARY | 2025-01-05 15:26 | XMS_ITS | Encounter Summary ---
Author Organization [facility] Address [address] [place] [address] Care Team Providers Care Cloth Shader Name Role Phone Marcelo Marcum MD Unavailable [phone] Shobha Conklin Primary Care Provider [phone] Nusrat Dutton MD Unavailable Aguilar Pinedo DO Primary Care Provider [phone] Encounter Details Date Type Department Care Team (Late st Contact Info) Description 02/11/2023 Abstract [facility] [address] [place] [phone] Marcelo Marcum MD [address] [place] [address] Social History Tobacco Use Types Packs/Day Years [...] Department Care Team (Late Contact Info) Description 07/02/2025 9:00 AM CDT Appointment [facility] Vascular Ultrasound - [facility] [address] [place] [address] Nusrat Dutton MD [address] [place] [address] 07/02/2025 10:15 AM CDT Office Visit [facility] [address] [place] [address] Nusrat Dutton MD [address] [place], [place] [address] documented as of this encounter Procedures Procedure [...] on filedocumented in this encounter Care Teams Cloth Shader Relationship Specialty Start Date End Date Shobha Conklin FNP [address] [place] [address] PCP - General NURSE PRACTITIONER 10/06/20 06/02/24 Aguilar Pinedo DO [address] [place] [address] PCP - General FAMILY PRACTICE 06/03/24 Marcelo Marcum MD [address] [place] [address] [place] Activities Therapist CARDIOVASCULAR DISEASE 10/11/17 06/26/23 Nusrat Dutton MD [address] [place] [address] Consulting Physician CARDIOVASCULAR DISEASE 06/27/23 documented as of this encounter
--- OUTSIDE RECORDS SUMMARY | 2025-01-05 15:26 | XMS_ITS | Clinical Summary ---
Author Organization [facility] Address [address] [place] [address] Care Team Providers Care Django Developer Name Role Phone Aguilar Pinedoh Primary Care [...] 1 tablet (50 mcg total) by mouth project management manager before breakfast Active losartan-hydroC HLOROthiazide (HYZAAR) 100-12.5 [...] as needed for wheezing 8 g 11 5 Active Active Problems Problem Noted Date Diagnosed Date Disorder of lung 01/12/2014 Encounters Date Type Department Care Team Description 12/28/2024 10:45 AM CDT Office Visit [facility] Pulmonary at [address] [place] [address] Enrrique Elaine MD Chronic obstructive pulmonary disease, unspecified COPD type (HCC) (Primary Dx); Nicotine dependence, cigarettes, uncomplicated from Last 3 Months Surgical History Surgery [...] Date Smoking Tobacco: Some Days Cigarettes 1 59.8 Started: 1966 Tobacco Cessation:Ready to Q uit: Not Asked; Counseling Given: Not Answered Alcohol Use Standard Drinks/Week Comments Yes 4 (1 standard drink = 0.6 oz pur e alcohol) AUDIT-C Answer Date Recorded Frequency of Alcohol Consumption 4 or more times a week 12/28/2024 Q2: How many drinks containi ng alcohol do you have on a typical day when you are drinking? 1 or 2 Frequency of Binge Drinking Never 12/10 Sex and Gender Information Value Date Recorded Sex Assigned at Not on file Legal Sex Male 11:02 AM LICENSED LIFE AND HEALTH AGENT Gender Identity Not on file Sexual Orientation Not on file Obstetrics History Last Filed Vital Signs Vital Sign Reading Time Taken Comments Blood Pressure 143/91 12/28/2024 10:47 AM CDT Pulse 53 12/28/2024 10:47 AM CDT Temperature 36.3 C (97.3 F) 12/28/2024 10:47 AM CDT Respiratory Rate 16 12/28/2024 10:4 7 AM CDT Oxygen Saturation 90% 12/28/2024 10: 47 AM CDT Inhaled Oxygen Concentration - - Weight 71.5 kg (157 lb 11.2 oz) 025 10:47 AM CDT Height 170.2 cm (5' 7) 12/28/2024 10:4 7 AM CDT Body Mass Index 24.7 12/28/2024 10:47 AM CDT Plan of Treatment Health Maintenance Due Date Last Done Comments Colon Cancer Screening-Colonoscopy 1950 Depression Screening 1950 Fall Risk Assessment 1950 Hepatitis C Screening 1950 DTaP/Tdap/Td Vaccine (1 - Tdap) 1960 Hepatitis B Screening 12/09/1967 Well Visit 65+ 2014 Zoster Vaccine (2 of 3) 05/01/2019 03/06/2019 Covid-19 Vaccine (2023-2 5 season) 2024 12/26/2023, 01/16/2023, 07/18/2022, Additional history exists Influenza Vaccine (#1) 2024 , 01/16/2023, 01/12/2022, Additional history exists Lung Cancer Screening 08/18/2025 08/17/2024 Pneumococcal vaccine 65+ Completed 017, 02/14/2017, 01/02/2015 Abdominal Aortic Aneurysm (A AA) Screen Completed [...] by Dino Villaseñor M.D. JR: Report ID: [id number] Reading Location: [id number] Procedure Note Dino Villaseñor MD - 09/01/2024 [...] 3 mm right upper lobe nodule (axial [id number]). Multiple additional nodules are stable, including a 4 mm right apicalnodule (axial image 37), 2 mm right upper lobe nodule anteriorly (axial [id number]), 5 mm nodule along the right major [...] by Dino Villaseñor M.D. JR: Report ID: [id number] Reading Location: [place] [address] Enrrique Elaine MD IM CT PROCEDURES Final Result from Last 3 Months or Most Recently Relevant to Health Maintenance Insurance [place] [email or web address] [place] Care Teams Django Developer Relationship Specialty Start Date End Date Aguilar Pinedo DO [address] [place] [address] PCP - General Family Medicine 08/26/23
--- OUTSIDE RECORDS SUMMARY | 2025-01-05 15:26 | XMS_ITS | Clinical Summary ---
Author Organization [facility] Care Team Providers Care Gyroscopic Engineering Technician Name Role Phone Shobha Conklin DEB Primary Care Provider [phone] Social History Tobacco Use Types Packs/Day Years [...] Recently Relevant to Health Maintenance Care Teams Gyroscopic Engineering Technician Relationship Specialty Start Date End Date Shobha Conklin APRN [address] [place] [address] PCP - General Family Medicine 04/26/21
--- OUTSIDE RECORDS SUMMARY | 2025-01-05 15:26 | XMS_ITS | Encounter Summary ---
Author Organization [facility] Address [address] [place] [address] Care Team Providers Care Minesweeping Officer Name Role Phone Marcelo Marcum MD Unavailable [phone] Shobha Conklin Primary Care Provider [phone] Nusrat Dutton MD Unavailable Aguilar Pinedo DO Primary Care Provider [phone] Encounter Details Date Type Department Care Team (Late Contact Info) Description 01/30/2023 Abstract [facility] [address] [place] [phone] Marcelo Marcum MD [address] [place] [address] Social History Tobacco Use Types Packs/Day Years [...] Info) Description 07/02/2025 9:00 AM CDT Appointment [facility] V[facility] Ultrasound - [facility] [place] [address] [place] [address] Nusrat Dutton MD [address] [place] [address] 07/02/2025 10:15 AM CDT Office Visit [facility] [address] [place] [address] Nusrat Dutton MD [address] [place] [address] documented as of this encounter Procedures Procedure Name Priority Date/Time Associated Diagnosis Comments CMP (ABSTRACTED LAB) Routine 10/25/2021 TSH (OUTSIDE LAB) Routine 10/25/2021 LIPID PANEL Routine 10/25/2021 documented in this encounter Results * TSH (OUTSIDE LAB) (10/25/2021) Pathologist [facility] TSH 3.11 0.36 - 3.74 10/25/2021 us Default History Genericprovider LAB-OUTSIDE/ABST RACTED Final Result * LIPID PANEL (10/25/2021) Pathologist [facility] CHOLESTEROL 148 0 - 200 HDL 81 40 - 60 TRIGLYCERIDES 51 0 - 150 LDL (CALCULATED) 57 <130 10/25/2021 us Default History Genericprovider LABORATORY Final Result * (ABNORMAL) CMP (ABSTRACTED LAB) (10/25/2021) Pathologist [facility] SODIUM S/P/B 133 136 - 145 POTASSIUM [...] on filedocumented in this encounter Care Teams Minesweeping Officer Relationship Specialty Start Date End Date Shobha Conklin FNP [address] [place] [address] PCP - General NURSE PRACTITIONER 10/06/20 06/02/24 Aguilar Pinedo DO [address] [place] [address] PCP - General FAMILY PRACTICE 06/03/24 Marcelo Marcum MD [address] [place] [phone] [place] Steel Checker CARDIOVASCULAR DISEASE 10/11/17 06/26/23 Nusrat Dutton MD [address] [place] [address] Consulting Physician CARDIOVASCULAR DISEASE 06/27/23 documented as of this encounter
--- OUTSIDE RECORDS SUMMARY | 2025-01-05 15:26 | XMS_ITS | Encounter Summary ---
Author Organization [facility] Address [address] [place] [address] Care Team Providers Care Leverman Name Role Phone Brayden Stroud MD Primary Care Provider Marcelo Lozano MD Unavailable [phone] Shobha Conklin Primary Care Provider [phone] Nusrat Dutton MD Unavailable Aguilar Pinedo DO Primary Care Provider [phone] Encounter Details Date Type Department Care Team (Late st Contact Info) Description 05/02/2018 Abstract [facility] [address] [place] [address] Abstract, Doc [facility] Social History Tobacco Use [...] on file documented as of this encounter Functional Status documented as of this encounter Plan of Treatment Upcoming Encounters Date Type Department Care Team (Late st Contact Info) Description 07/02/2025 9:00 AM CDT Appointment [facility] [address] [place] [address] Nusrat Dutton MD [address] [place] [address] 07/02/2025 10:15 AM CDT Office Visit [facility] [address] [place] [address] Nusrat Dutton MD [address] [place] [address] documented as of this encounter Visit Diagnoses Not on filedocumented in this encounter Care Teams Leverman Relationship Specialty Start Date End Date Brayden Stroud MD PCP - General SURGERY 10/11/17 10/05/20 Shobha Conklin, COMMUNICATIONS ATTENDANT [address] [place] [address] PCP - General NURSE PRACTITIONER 10/06/20 06/02/24 Aguilar Pinedo DO [address] [place] [address] PCP - General FAMILY PRACTICE 06/03/24 Marcelo Marcum MD [address] [place] [address] Mobile Squilgeer CARDIOVASCULAR DISEASE 10/11/17 06/26/23 Nusrat Dutton MD [address] [place] [address] Consulting Physician CARDIOVASCULAR DISEASE 06/27/23 documented as of this encounter
--- OUTSIDE RECORDS SUMMARY | 2025-01-05 15:26 | XMS_ITS | Clinical Summary ---
Author Organization [facility] Address [facility] [place] [address] Care Team Providers Care Piping Supervisor Name Role Phone Kecia Turner MD Unavailable Aguilar Pinedo DO Primary Care Provider [phone] Allergies Active Allergy Reactions Criticality Noted Date [...] WHEEZING . GEF PROAIR HFA 09/10/2019 Active metoprolol succinate ER 50 MG 24 hr tablet Take 1 tablet (50 mg total) by mouth daily. Active diphenhydrAMINE 50 MG tablet Take 1 tablet (50 mg total) by mouth nightly as needed for Itching. Active acetaminophen 500 MG tablet Take 1 tablet (500 mg total) by mouth every 6 (six) hours as needed for Pain. Active Active Problems Problem Noted Date Diagnosed Date Current smoker 03/12/2018 Hypertension Coronary artery disease Dyspnea Sleep apnea Obstructive sleep apnea COPD (chronic obstructive pulmonary disease) Encounters Date Type Department Care Team Description 12/10/2024 Orders Only [facility] [address] [place] [address] Kecia Turner MD 12/07/2024 Telephone [facility] [address] [place] [phone] Kecia Turner MD Appointment Request; Orders 12/05/2024 MyChart Message Enc [facility] [address] [place] [address] Kecia Turner MD Pravastatin 12/04/2024 1:15 PM CDT Office Visit [facility] [address] [place] [address] Kecia Turner MD Heart Problem 12/04/2024 8:38 AM CDT - 12/04/2024 11:59 PM CDT Hospital Encounter [facility] [address] [place] [address] Kecia Turner MD Discharge Disposition: Home or Self Care (Routine Discharge) 12/04/2024 8:38 AM CDT - 12/04/2024 11:59 PM CDT Hospital Encounter [facility] Non Invasive Cardiology - [facility] [address] [place] [address] Kecia Turner MD Discharge Disposition: Home or Self Care (Routine Discharge) 12/04/2024 Orders Only [facility] [address] [place] [address] Kecia Turner MD 12/04/2024 Travel 12/04/2024 Orders Only [facility] [address] [place] [address] Kecia Turner MD 12/04/2024 Orders Only [facility] [address] [place] [address] Kecia Turner MD from Last 3 Months Family History Medical History Relation Comments Aneurysm [...] Sign Reading Time Taken Comments Blood Pressure 120/66 12/04/2024 11:43 AM CDT Pulse 60 12/04/2024 11:43 AM CDT Temperature 36.4 C (97.5 F) 08/21/2021 12:37 PM CDT Respiratory Rate 16 12/04/2024 11:4 3 AM CDT Oxygen Saturation 96% 12/04/2024 11: 43 AM CDT Inhaled Oxygen Concentration - - Weight 73.4 kg (161 lb 12.8 oz) 025 11:43 AM CDT Height 170.2 cm (5' 7) 12/04/2024 11:4 3 AM CDT Body Mass Index 25.34 12/04/2024 11:43 AM CDT Plan of Treatment Upcoming Encounters Date Type Department Care Team (Late st Contact Info) Description 07/02/2025 9:00 AM CDT Appointment [facility] [address] [place] [address] Kecia Turner MD [address] [place], [place] [address] 07/02/2025 10:15 AM CDT [facility] [address] [place] [address] Kecia Turner MD [address] [place], [place] [address] Health Maintenance Due Date Last Done Comments ASCVD Statin 1950 Hepatitis C 12/09/1967 DTaP, Tdap and Td Vaccines (1 - Tdap) 1968 Annual Medicare Wellness Visit 2014 Zoster Vaccines (2 of 3) 05/01/2019 03/06/2019 COVID-19 Vaccine (8 - season) 2024 01/16/2023, 07/18/2022, 01/12/2022, Additional history exists RSV Immunization or 60+ Years (1 - 1-dose 75+ series) 2024 Influenza Adult (#1) 2024 12/19/2018, 01/06/2018, 02/14/2017, Additional history exists Colorectal Cancer Screening Colonoscopy (10 Years) 08/22/2031 08/21/2021, 08/21/2021 Pneumococcal Vaccine: 50+ Years Completed 02/15/2017, 02/14/2017, 01/02/2015 AAA SCREENING Completed 11/01/2020 Hepatitis A Vaccines Aged Out No long er eligible based on patient's age to complete this topic Meningococcal B Vaccine Aged Out No l onger eligible based on patient's age to complete this topic Meningococcal Vaccine Aged Out No saw rosario eligible based on patient's age to complete this topic RSV Immunizations Under 20 Months Aged Out No longer eligible based on patient's age to complete this topic Procedures Procedure Name Priority Date/Time Associated Diagnosis Comments COMPREHENSIVE METABOLIC PANEL Routine 2024 Shortness of breath Familial hypercholesterolemia Primary hypertension Abdominal aortic aneurysm (AAA) without rupture, unspecified part Hypertensive heart disease without heart failure Coronary artery disease involving [place] coronary artery of [place] heart without angina pectoris LIPID PANEL Routine 2024 Shortness of breath Familial hypercholesterolemia Primary hypertension Abdominal aortic aneurysm (AAA) without rupture, unspecified part Hypertensive heart disease without heart failure Coronary artery disease involving [place] coronary artery of [place] heart without angina pectoris ELECTROCARDIOGRAM (NON MIDMARK ACQUIRED) Routine 12/04/2024 11:48 AM CDT Primary hypertension Familial hypercholesterolemia USV AORTA ILIAC IVC DUPLEX COMP Routine 12/04/2024 10:55 AM CDT AAA (abdominal aortic aneurysm) USE ECHOCARDIOGRAM Routine 12/04/2024 9:33 AM CDT HHD (hypertensive heart disease) COLONOSCOPY Routine 08/21/2021 11:23 AM CDT USV AAA SCREENING Routine 11/01/2020 7:33 AM CDT Primary hypertension Coronary artery disease involving [place] coronary artery of [place] heart without angina pectoris Current smoker Dyspnea on exertion Obstructive sleep apnea from Last 3 Months or Most Recently Relevant to Health Maintenance Results * COMPREHENSIVE METABOLIC PANEL (2024) SODIUM S/P/B 138 POTASSIUM S/P/B 4.1 CO2 31 CHLORIDE S/P/B 101 GLUCOSE 87 mg/dL CALCIUM S/P/B 9.6 BUN 15 CREATININE S/P/B 1.21 0.7 - 1.3 GFR ESTIMATE 58 ALKALINE PHOSPHATASE S/P/B 78 ALT 20 AST 31 BILIRUBIN TOTAL S/P/B 0.8 ALBUMIN S/P/B 3.9 3.5 - 5.0 TOTAL PROTEIN S/P/B 7.2 2024 Kecia Turner MD LABORATORY Final Result * LIPID PANEL (2024) CHOLESTEROL 153 HDL 93 TRIGLYCERIDES 69 NON HDL CHOLESTEROL na CHOL/HDL RATIO na LDL (CALCULATED) 46 VLDL CALCULATION na 2024 us Kecia Turner MD LABORATORY Final Result * ELECTROCARDIOGRAM (NON MIDMARK ACQUIRED) (12/04/2024 11:48 AM CDT) 12/04/2024 11:4 8 AM CDT Narrative [facility] - 12/04/2024 6:04 PM CDT [facility] [place] [address] Test Date: 2024-12-04 Pat Name: SHARON KORI Department: 105 Room: Gender: Male Cotton Ginner: : 1950 Requested By: KECIA TURNER Order Number: [id number] Reading MD: Kecia Turner Measurements Intervals [place] Rate: 52 P: 80 VT: 190 QRS: -66 QRSD: 128 T: 80 QT: 449 QTc: 420 Interpretive Statements SINUS BRADYCARDIA LEFT AXIS DEVIATION MODERATE INTRAVENTRICULAR CONDUCTION DELAY Procedure Note Kecia Turner MD - 12/04/2024 [facility] [address] [place] [address] Test Date: 2024-12-04 Pat Name: SHARON SHEIKH Department: 105 Room: Gender: Male Cotton Ginner: : 1950 Requested By: KECIA TURNER Order Number: [id number] Reading MD: Kecia Turner Measurements Intervals [place] Rate: 52 P: 80 VT: 190 QRS: -66 QRSD: 128 T: 80 QT: 449 QTc: 420 Interpretive Statements SINUS BRADYCARDIA LEFT AXIS DEVIATION MODERATE INTRAVENTRICULAR CONDUCTION DELAY us Kecia Turner MD PROCEDURES-ORDERABLE NO CHARGE F inal Result [facility] * USV AORTA ILIAC IVC DUPLEX COMP (12/04/2024 10:55 AM CDT) Anatomical Region Laterality Modality NA Ultrasound 12/04/2024 10:2 5 AM CDT Narrative 12/04/2024 12:27 PM CDT Vascular Report Aorta - Iliac Artery Duplex Pat.Name: SHARON SHEIKH Pat.ID: [id number] St.Date: 12/04/2024 Refer.MD: KECIA TURNER Exam Time: 10:25:00 AM Study Type:PVI DUPLEX SCAN-AORTA & ILIAC ART Height: 67 in Age: 9 1950,73Y Sex: M Sonogrphr: NADIA Burns Pat. Stat.:Outpatient ICD - 9: I71.4 AAA without Rupture CPT - 4: 34953 Aorta/IVC Duplex Reason for Study:Abdominal aortic aneurysm Race: W ++++++++++++++++++++++++++++++++++++ FINDINGS: ++++++++++++++++++++++++++++++++++++ AO: Patent aorta noted. An abdominal aortic aneurysm noted in the infrarenal aorta measuring 3.7 x 4.2 cm. Homogeneous plaque is noted within the lumen of the infrarenal aorta. R Iliac: Patent iliac arteries noted. No evidence of iliac artery aneurysm or ectasia noted. L Iliac: Patent iliac arteries noted. No evidence of iliac artery aneurysm or ectasia noted. ++++++++++++++++++++++++++++++++++++ MEASUREMENTS: ++++++++++++++++++++++++++++++++++++ DOPPLER Prox AO Supra AO PSV 55.6 cm/s Supra AO Dim 1 2.1 cm Supra AO Supra AO Dim 2 2.6 cm Juxta AO Juxta AO PSV 47.3 cm/s Juxta AO Dim 2 2.8 cm Mid AO Juxta AO Dim 1 2.5 cm Dist AO Infra AO PSV 44.9 cm/s Infra AO Dim 1 3.7 cm Infra AO Infra AO Dim 2 4.2 cm Rt Dist Common Iliac Dist Common Sarina 70.7 cm/s Rt Dist External Iliac Dist External I 98.6 cm/s Rt Mid Common Iliac Mid Common Mo 82.7 cm/s Rt Mid External Iliac Mid External Il 70.4 cm/s Rt Prox Common Iliac Common Iliac PS 98.6 cm/s Common Iliac Di 0.98 cm Common Iliac Di 1 cm Rt Prox External Iliac External Iliac 65.1 cm/s Lt Dist Common Iliac Lt Dist Common 67.5 cm/s Lt Dist External Iliac Lt Dist Externa 103 cm/s Lt Mid Common Iliac Lt Mid Common I 88.2 cm/s Lt Mid External Iliac Lt Mid External 77.9 cm/s Lt Prox Common Iliac Common Iliac PS 111 cm/s Common Iliac Di 1.1 cm Common Iliac Di 1.3 cm Lt Prox External Iliac External Iliac 51.9 cm/s <Electronic Signature> 12/04/2024 12:27 PM Kecia Turner M.D. Procedure Note Kecia Turner MD - 12/04/2024 Vascular Report Aorta - Iliac Artery Duplex Pat.Name: SHARON SHEIKH Pat.ID: [id number] .Date: 12/04/2024 Refer.MD: KECIA TURNER Exam Time: 10:25:00 AM Study Type:PVI DUPLEX SCAN-AORTA & ILIAC ART Height: 67 in Age: 9 1950,73Y Sex: M Sonogrphr: NADIA Burns Pat. Stat.:Outpatient ICD - 9: I71.4 AAA without Rupture CPT - 4: 09022 Aorta/IVC Duplex Reason for Study:Abdominal aortic aneurysm Race: W ++++++++++++++++++++++++++++++++++++ FINDINGS: ++++++++++++++++++++++++++++++++++++ AO: Patent aorta noted. An abdominal aortic aneurysm noted in the infrarenal aorta measuring 3.7 x 4.2 cm. Homogeneous plaque is noted within the lumen of the infrarenal aorta. R Iliac: Patent iliac arteries noted. No evidence of iliac artery aneurysm or ectasia noted. L Iliac: Patent iliac arteries noted. No evidence of iliac artery aneurysm or ectasia noted. ++++++++++++++++++++++++++++++++++++ MEASUREMENTS: ++++++++++++++++++++++++++++++++++++ DOPPLER Prox AO Supra AO PSV 55.6 cm/s Supra AO Dim 1 2.1 cm Supra AO Supra AO Dim 2 2.6 cm Juxta AO Juxta AO PSV 47.3 cm/s Juxta AO Dim 2 2.8 cm Mid AO Juxta AO Dim 1 2.5 cm Dist AO Infra AO PSV 44.9 cm/s Infra AO Dim 1 3.7 cm Infra AO Infra AO Dim 2 4.2 cm Rt Dist Common Iliac Dist Common Sarina 70.7 cm/s Rt Dist External Iliac Dist External I 98.6 cm/s Rt Mid Common Iliac Mid Common Mo 82.7 cm/s Rt Mid External Iliac Mid External Il 70.4 cm/s Rt Prox Common Iliac Common Iliac PS 98.6 cm/s Common Iliac Di 0.98 cm Common Iliac Di 1 cm Rt Prox External Iliac External Iliac 65.1 cm/s Lt Dist Common Iliac Lt Dist Common 67.5 cm/s Lt Dist External Iliac Lt Dist Externa 103 cm/s Lt Mid Common Iliac Lt Mid Common I 88.2 cm/s Lt Mid External Iliac Lt Mid External 77.9 cm/s Lt Prox Common Iliac Common Iliac PS 111 cm/s Common Iliac Di 1.1 cm Common Iliac Di 1.3 cm Lt Prox External Iliac External Iliac 51.9 cm/s <Electronic Signature> 12/04/2024 12:27 PM Kecia Turner M.D. Kecia Turner MD [facility] Final Result * USE ECHOCARDIOGRAM (12/04/2024 9:33 AM CDT) Anatomical Region Laterality Modality Cardiac Echocardiogram 12/04/2024 9:08 AM CDT Narrative 12/05/2024 7:14 PM CDT Echocardiography Report Pat.Name: SHARON SHEIKH Pat.ID: [id number] .Date: 12/04/2024 : [id number] YUE MCDONNELL EWDPROV EWDPROV Exam Time: 9:08:00 AM Study Type:ECHO WITH CARDIAC DOPPLER COMP Height: 67 in Weight: 162 lb BSA: 1.85 m2 Age: 9 1950,73Y Sex: M BP: 122/76 HR: 55 bpm Sonogrphr: Beulah Cowart RDCS Pat. Stat.:Outpatient Reason for Study:Hypertension Procedures: 2D, M-mode, Doppler, Color Flow ++++++++++++++++++++++++++++++++++++ SUMMARY: ++++++++++++++++++++++++++++++++++++ The left ventricular size is normal. Estimated left ventricular ejection fraction is 50-55%. Wall motion appears normal in all segments. The right ventricle size is normal. The right ventricular function is normal. Trace mitral regurgitation. A trace of tricuspid regurgitation. ++++++++++++++++++++++++++++++++++++ FINDINGS: ++++++++++++++++++++++++++++++++++++ LV: The left ventricular size is normal. The left ventricular systolic function is normal. The calculated ejection fraction is %. Estimated left ventricular ejection fraction is 50-55%. WM: Wall motion appears normal in all segments. RV: The right ventricle size is normal. The right ventricular function is normal. LA: The left atrial volume is mildly increased (34- 41ml/M2). RA: The right atrial size is normal. ANDREA: No evidence of pericardial effusion. PLE: Pleural effusion is not present. AO: Normal aortic root. SVn: Inferior vena cava is normal. AV: The aortic valve is trileaflet. There is no aortic stenosis. There is no evidence of aortic regurgitation. MV: Structurally normal mitral valve. Trace mitral regurgitation. PV: The pulmonic valve is normal There is trace pulmonic regurgitation TV: Structurally normal tricuspid valve. A trace of tricuspid regurgitation. ++++++++++++++++++++++++++++++++++++ MEASUREMENTS: ++++++++++++++++++++++++++++++++++++ DOPPLER LVOT LVOTpkPG 3 mmHg LVOT TVI 20.8 cm LVOTpkVel 82.9 cm/s (70-110)+ LVOTmnPG 2 mmHg AV Forward Flow AV TVI 30.1 cm AV mnPG 4 mmHg AV pkVel 134 cm/s (100-170)+ AV pkPG 7 mmHg AV mnVel 91.6 cm/s MV Forward Flow MV DeTm 278 msec MV pkE 63 cm/s (60-130) MV E/A 0.8 MV pkA 79.3 cm/s Lat E' Lat e 8.92 cm/s Lat E/E' Lat E/e 7.1 Med E' Med e 6.31 cm/s Med E/E' Med E/e 10 Aortic Valve Aortic Valve Ve 0.62 AV DI Value 0.7 LV Mass 2D Value 152 g LV Mass [id number] Value 82.2 g/m2 Right Ventricle Right Ventricle 12.1 cm/s 2D Left Ventricle LVIDd 4.93 cm (3.6-5.2) LVIDs 3.58 cm (2.3-3.9) LVPW LVPWd 0.881 cm Ventricular Septum IVSd 0.896 cm Left Atrium LA a-p 2.62 cm (2.8-3.4)+* Aorta Ao Rtd 4.21 cm (zsc 4.6)* Ratios IVS LA Biplane LAVol I BP 36.9 ml/m2 MMODE TA Tricuspid Annul 2.38 cm <Electronic Signature> 12/05/2024 07:14 PM Kecia Turner M.D. Procedure Note Kecia Turner MD - 12/05/2024 Echocardiography Report Pat.Name: SHARON SHEIKH Pat.ID: [id number] .Date: 12/04/2024 Refer.MD: [id number] YUE MCDONNELL EWDPROV EWDPROV Exam Time: 9:08:00 AM Study Type:ECHO WITH CARDIAC DOPPLER COMP Height: 67 in Weight: 162 lb BSA: 1.85 m2 Age: 9 1950,73Y Sex: M BP: 122/76 HR: 55 bpm Sonogrphr: Beulah Cowart [facility] Pat. Stat.:Outpatient Reason for Study:Hypertension Procedures: 2D, M-mode, Doppler, Color Flow ++++++++++++++++++++++++++++++++++++ SUMMARY: ++++++++++++++++++++++++++++++++++++ The left ventricular size is normal. Estimated left ventricular ejection fraction is 50-55%. Wall motion appears normal in all segments. The right ventricle size is normal. The right ventricular function is normal. Trace mitral regurgitation. A trace of tricuspid regurgitation. ++++++++++++++++++++++++++++++++++++ FINDINGS: ++++++++++++++++++++++++++++++++++++ LV: The left ventricular size is normal. The left ventricular systolic function is normal. The calculated ejection fraction is %. Estimated left ventricular ejection fraction is 50-55%. WM: Wall motion appears normal in all segments. RV: The right ventricle size is normal. The right ventricular function is normal. LA: The left atrial volume is mildly increased (34- 41ml/M2). RA: The right atrial size is normal. ANDREA: No evidence of pericardial effusion. PLE: Pleural effusion is not present. AO: Normal aortic root. SVn: Inferior vena cava is normal. AV: The aortic valve is trileaflet. There is no aortic stenosis. There is no evidence of aortic regurgitation. MV: Structurally normal mitral valve. Trace mitral regurgitation. PV: The pulmonic valve is normal There is trace pulmonic regurgitation TV: Structurally normal tricuspid valve. A trace of tricuspid regurgitation. ++++++++++++++++++++++++++++++++++++ MEASUREMENTS: ++++++++++++++++++++++++++++++++++++ DOPPLER LVOT LVOTpkPG 3 mmHg LVOT TVI 20.8 cm LVOTpkVel 82.9 cm/s (70-110)+ LVOTmnPG 2 mmHg AV Forward Flow AV TVI 30.1 cm AV mnPG 4 mmHg AV pkVel 134 cm/s (100-170)+ AV pkPG 7 mmHg AV mnVel 91.6 cm/s MV Forward Flow MV DeTm 278 msec MV pkE 63 cm/s (60-130) MV E/A 0.8 MV pkA 79.3 cm/s Lat E' Lat e 8.92 cm/s Lat E/E' Lat E/e 7.1 Med E' Med e 6.31 cm/s Med E/E' Med E/e 10 Aortic Valve Aortic Valve Ve 0.62 AV DI Value 0.7 LV Mass 2D Value 152 g LV Mass [id number] Value 82.2 g/m2 Right Ventricle Right Ventricle 12.1 cm/s 2D Left Ventricle LVIDd 4.93 cm (3.6-5.2) LVIDs 3.58 cm (2.3-3.9) LVPW LVPWd 0.881 cm Ventricular Septum IVSd 0.896 cm Left Atrium LA a-p 2.62 cm (2.8-3.4)+* Aorta Ao Rtd 4.21 cm (zsc 4.6)* Ratios IVS LA Biplane LAVol I BP 36.9 ml/m2 MMODE TA Tricuspid Annul 2.38 cm <Electronic Signature> 12/05/2024 07:14 PM Kecia Turner M.D. us Kecia Turner MD ECHO Final Result * USV AAA SCREENING (11/01/2020 [...] By: Macario Brito DO, 11/01/2020 10:17 AM MITA Mejia APRNC [facility] Final Result from Last 3 Months or Most Recently Relevant to Health Maintenance Insurance MEDICARE [facility] MEDICARE [facility] Care Teams Piping Supervisor Relationship Specialty Start Date End Date Aguilar Pinedo DO [address] [place] [address] PCP - General FAMILY PRACTICE 06/03/24 Kecia Turner MD [address] [place] [address] Consulting Physician CARDIOVASCULAR DISEASE 06/27/23
--- OUTSIDE RECORDS SUMMARY | 2025-01-05 15:26 | XMS_ITS | Encounter Summary ---
Author Organization [facility] Address [address] [place] [address] Care Team Providers Care Pharmacist Hospital Name Role Phone Brayden Stroud MD Primary Care Provider Marcelo Lozano MD Unavailable [phone] Shobha Conklin Primary Care Provider [phone] Nusrat Dutton MD Unavailable Aguilar Pinedo DO Primary Care Provider [phone] Encounter Details Date Type Department Care Team (Late st Contact Info) Description 10/22/2017 Abstract [facility] [address] [place] [phone] Marcelo Marcum MD [address] [place] [address] Social History Tobacco Use Types Packs/Day Years [...] Info) Description 07/02/2025 9:00 AM CDT Appointment [facility] [address] [place] [address] Nusrat Dutton MD [address] [place] [address] 07/02/2025 10:15 AM CDT Office Visit [facility] [address] [place] [address] Nusrat Dutton MD [address] [place] [address] documented as of this encounter Visit Diagnoses Not on filedocumented in this encounter Care Teams Pharmacist Hospital Relationship Specialty Start Date End Date Brayden Stroud MD PCP - General SURGERY 10/11/17 10/05/20 Shobha Conklin FNP [address] [place] [address] PCP - General NURSE PRACTITIONER 10/06/20 06/02/24 Aguilar Pinedo DO [address] [place] [address] PCP - General FAMILY PRACTICE 06/03/24 Marcelo Marcum MD [address] [place] [address] [place] [facility] CARDIOVASCULAR DISEASE 10/11/17 06/26/23 Nusrat Dutton MD [address] [place] [address] Consulting Physician CARDIOVASCULAR DISEASE 06/27/23 documented as of this encounter
--- OUTSIDE RECORDS SUMMARY | 2025-01-05 15:26 | XMS_ITS | Encounter Summary ---
Author Organization [facility] Address [address] [place] [address] Care Team Providers Care Fire Tower Keeper Name Role Phone Nusrat Dutton MD Unavailable gAuilar Pinedo DO Primary Care Provider [phone] Encounter Details Date Type Department Care Team (Late Contact Info) Description 12/05/2024 Affirm Message [facility] [address] [place] [address] Nusrat Dutton MD [address] [place] [address] Pravastatin Social History Tobacco Use Types Packs/Day Years Used Date Smoking Tobacco: Every Day Cigarettes Smokeless Tobacco: Never Alcohol Use Standard Drinks/Week Comments Yes 0 [...] Info) Description 07/02/2025 9:[address] [facility] - [facility] [address] [place], [place] [address] Nusrat Dutton MD [address] [place] [address] 07/02/2025 10:15 AM CDT Office Visit [facility] [address] [place] [address] Nusrat Dutton MD [address] [place] [address] documented as of this encounter Visit Diagnoses Not on filedocumented in this encounter Care Teams Fire Tower Keeper Relationship Specialty Start Date End Date Aguilar Pinedo DO [address] [place] [address] PCP - General FAMILY PRACTICE 06/03/24 Nusrat Dutton MD [address] [place] [address] Consulting Physician CARDIOVASCULAR DISEASE 06/27/23 documented as of this encounter
== END 2025-01-05 13:26 | disposition home or self-care (01) ==
LOC: CHSIMG 13:28
PROVIDERS: PCP Nurse Practitioner Family; Visit Provider Nurse Practitioner Family
DX: M19.011 Primary osteoarthritis, right shoulder (principal)
CPT/HCPCS: 73030

== ENCOUNTER 2025-01-19 14:08 | Outpatient (CLI) | payer MEDICARE, BC, SELFPAY ==
--- OUTSIDE RECORDS SUMMARY | 2025-01-19 14:19 | XMS_ITS | Clinical Summary ---
Author Organization [facility] Care Team Providers Care Casino Banker Name Role Phone Shobha Conklin DEB Primary Care Provider [phone] Social History Tobacco Use Types Packs/Day Years [...] Recently Relevant to Health Maintenance Care Teams Casino Banker Relationship Specialty Start Date End Date Shobha Conklin APRN [address] [place] [address] PCP - General Family Medicine 04/26/21
--- OUTSIDE RECORDS SUMMARY | 2025-01-19 14:19 | XMS_ITS | Encounter Summary ---
Author Organization [facility] Healthcare Address [address] [place] [address] Care Team Providers Care Bin Worker Name Role Phone Benrosendo Aguilar Steeleh Primary Care Provider Encounter Details Date Type Department Care Team (Late st Contact Info) Description 01/18/2025 Telephone [facility] Medical Group Pulmonary at [address] [place] [address] Fariha Ocampo LPN Social History Tobacco Use Types Packs/Day Years Used Date Smoking Tobacco: Some Days Cigarettes 1 59.9 Started: 1967 Alcohol Use Standard Drinks/Week Comments Yes 4 [...] on file Legal Sex Male 11:02 AM FEATHER CUTTING MACHINE FEEDER Gender Identity Not on file Sexual Orientation Not on file documented as of this encounter Miscellaneous Notes * Telephone Encounter - Fariha Ocampo LPN - 01/18/2025 1:38 PM FEATHER CUTTING MACHINE FEEDER called and requested pt to have Alpha 1 lab done at [facility]. Order faxed to [facility] [phone] HER CUTTING MACHINE FEEDER documented in this encounter Plan of Treatment Not on file documented as of this encounter Visit Diagnoses Not on filedocumented in this encounter Care Teams Bin Worker Relationship Specialty Start Date End Date Aguilar Pinedo DO [address] [place] [address] PCP - General Family Medicine 08/26/23 documented as of this encounter
--- OUTSIDE RECORDS SUMMARY | 2025-01-19 14:19 | XMS_ITS | Clinical Summary ---
Author Organization [facility] Medical Office Building B Address [address] [place] [address] Care Team Providers Care Machine Stuffer Automatic Name Role Phone Aguilar Pinedoh Primary Care [...] 1 tablet (50 mcg total) by mouth orange picking supervisor before breakfast Active losartan-hydroC HLOROthiazide (HYZAAR) 100-12.5 [...] Encounters Date Type Department Care Team Description 01/18/2025 Telephone [facility] Pulmonary at [address] [place] [phone] Fariha Ocapmo LPN 01/14/2025 Orders Only [facility] Pulmonary at [address] [place] [phone] Enrrique Elaine MD Heterozygous alpha 1-antitrypsin deficiency (HCC) (Primary Dx) 12/28/2024 10:45 AM CDT Office Visit [facility] Pulmonary at [address] [place] [phone] Enrrique Elaine MD Chronic obstructive pulmonary disease, [...] Tobacco: Some Days Cigarettes 1 59.9 Started: 1966 Tobacco Cessation:Ready to Q uit: [...] when you are drinking? 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 JR: Report ID: [id number] Reading Location: [place] [address] Procedure Note Dino Villaseñor MD - 09/01/2024 [...] 3 mm right upper lobe nodule (axial [id number]). Multiple additional nodules are stable, including a 4 mm right apicalnodule (axial image 37), 2 mm right upper lobe nodule anteriorly (axial [id number]), 5 mm nodule along the right major [...] by Dino Villaseñor M.D. JR: Report ID: [id number] Reading Location: [place] [address] Enrrique Elaine MD IMG CT PROCEDURES Final Result from Last 3 Months or Most Recently Relevant to Health Maintenance Insurance [place]ICARE [place] Care Teams Machine Stuffer Automatic Relationship Specialty Start Date End Date Aguilar Pinedo DO [address] [place] [address] PCP - General Family Medicine 08/26/23
== END 2025-01-19 14:09 | disposition home or self-care (01) ==
PROVIDERS: PCP Family Medicine; Visit Provider Internal Medicine Pulmonary Disease
DX: E88.01 Alpha-1-antitrypsin deficiency (principal)
CPT/HCPCS: 82103

== ENCOUNTER 2025-02-13 11:41 | Outpatient (CLI) | payer MEDICARE, BC, SELFPAY ==
--- NOTE | ~2025-02-13 | MR_ITS ---
EXAMINATION: MR shoulder RT wo con DATE: 02/13/2025 13:24 INDICATION: Right shoulder pain TECHNIQUE: Magnetic resonance imaging (MRI) of the right shoulder was performed without intravenous contrast. Sequences included axial PD-weighted FS FSE, coronal oblique PD-weighted FS FSE, coronal oblique T2-weighted FS FSE, sagittal PD-weighted FS FSE, and sagittal T1-weighted SE. COMPARISON: None. FINDINGS: Coracoacromial arch: The acromion undersurface is curved in morphology (type II). The coracoacromial ligament is normal. Moderate acromioclavicular osteoarthritis. Rotator cuff: The supraspinatus, infraspinatus and teres minor tendons are normal. Mild subscapularis tendinopathy with tear involving the cephalad two thirds of the lesser tuberosity footplate of the tendon. The lateral 4 cm the tendon appears attenuated but remains tethered distally by intact bursal side of the tendon which remains contiguous with the intact transverse humeral ligament. There is medial retraction and fatty atrophy of the subscapularis muscle belly. Remainder of the rotator cuff musculature appears normal. Biceps tendon, glenoid labrum and glenohumeral cartilage: The long head of the biceps tendon is medially dislocated intertubercular groove and across the lesser tuberosity subscapular tendon tear defect extending craniocaudally along the anterior margin of the glenohumeral joint line. Mild tendinopathy without tear of the long head biceps tendon. There is a superior, anterior to posterior tear of the glenoid labrum (SLAP tear) involving the 11:00-12:00 position of the posterior superior glenoid labrum. Mild partial- thickness chondral ulceration along the inferomedial aspect of the humeral head with very small central subchondral osteophyte with minimal underlying subarticular edema-like signal change. Glenoid cartilage appears relatively preserved. Fluid: Physiologic amount of fluid in the glenohumeral joint and biceps tendon sheath. No loose osteochondral bodies. Of abnormal increased fluid signal in the subacromial/subdeltoid bursa to suggest bursitis. Bones: Degenerative subarticular edema-like and cystlike change at the acromioclavicular joint. No fracture or pathologic marrow replacing process. IMPRESSION: 1. Mild subscapularis tendinopathy with complete tear of the cephalad two thirds of the lesser tuberosity footplate of the tendon which likely chronic given the associated fatty atrophy of the muscle belly. 2. Mild tendinopathy but no tear of the long head biceps tendon which is dislocated from the intertubercular groove and medially subluxed across the subscapularis tendon tear defect. 3. SLAP tear at the posterior superior glenoid labrum and mild glenohumeral osteoarthritis with small region of high-grade chondral malacia along the inferomedial humeral head. 4. Moderate acromioclavicular osteoarthritis. Reviewed, dictated and finalized at location A. [employer] OFFICER IMPRESSION: 1. Mild subscapularis tendinopathy with complete tear of the cephalad two third s of the lesser tuberosity footplate of the tendon which likely chronic given t he associated fatty atrophy of the muscle belly. 2. Mild tendinopathy but no tear of the long head biceps tendon which is disloc ated from the intertubercular groove and medially subluxed across the subscapul bambi tendon tear defect. 3. SLAP tear at the posterior superior glenoid labrum and mild glenohumeral ost eoarthritis with small region of high-grade chondral malacia along the inferome dial humeral head. 4. Moderate acromioclavicular osteoarthritis.
--- OUTSIDE RECORDS SUMMARY | 2025-02-13 11:45 | XMS_ITS | Encounter Summary ---
Author Organization [facility] Address [address] [place] [address] Care Team Providers Care Hygiene Assistant Name Role Phone Nusrat Dutton MD Unavailable Aguilar Pinedo DO Primary Care Provider [phone] Encounter Details Date Type Department Care Team (Late Contact Info) Description 12/05/2024 LogicSource Message [facility] [address] [place] [address] Nusrat Dutton MD [address] [place] [address] Pravastatin Social History Tobacco Use [...] Info) Description 07/02/2025 9:00 AM CDT Appointment [facility] Vascular Ultrasound - [facility] [place] [address] [place], [place] [address] Nusrat Dutton MD [address] [place] [address] 07/02/2025 10:15 AM CDT Office Visit [facility] [address] [place] [address] Nusrat Dutton MD [address] [place] [address] documented as of this encounter Visit Diagnoses Not on filedocumented in this encounter Care Teams Hygiene Assistant Relationship Specialty Start Date End Date Aguilar Pinedo DO [address] [place] [address] PCP - General FAMILY PRACTICE 06/03/24 Nusrat Dutton MD [address] [place] [address] Consulting Physician CARDIOVASCULAR DISEASE 06/27/23 documented as of this encounter
--- OUTSIDE RECORDS SUMMARY | 2025-02-13 11:45 | XMS_ITS | Encounter Summary ---
Author Organization [facility] Address [address] [place] [address] Care Team Providers Care Leather Stitcher Name Role Phone Marcelo Marcum MD Unavailable [phone] Shobha Conklin Primary Care Provider [phone] Nusrat Dutton MD Unavailable Aguilar Pinedo DO Primary Care Provider [phone] Encounter Details Date Type Department Care Team (Late st Contact Info) Description 02/11/2023 Abstract [facility] [address] [place] [phone] Marcelo Marcum MD [address] [place] [phone] Social History Tobacco Use Types Packs/Day Years [...] Info) Description 07/02/2025 9:00 AM CDT Appointment [facility] Vascular Ultrasound - [facility] [address] [place] [address] Nusrat Dutton MD [address] [place] [address] 07/02/2025 10:15 AM CDT Office Visit [facility] [address] [place] [address] Nusrat Dutton MD [address] [place], [place] [address] documented as of this encounter Procedures Procedure [...] on filedocumented in this encounter Care Teams Leather Stitcher Relationship Specialty Start Date End Date Shobha Conklin FNP [address] [place] [address] PCP - General NURSE PRACTITIONER 10/06/20 06/02/24 Aguilar Pinedo DO [address] [place] [address] PCP - General FAMILY PRACTICE 06/03/24 Marcelo Marcum MD [address] [place] [address] [place] Membership Solicitor CARDIOVASCULAR DISEASE 10/11/17 06/26/23 Nusrat Dutton MD [address] [place] [address] Consulting Physician CARDIOVASCULAR DISEASE 06/27/23 documented as of this encounter
--- OUTSIDE RECORDS SUMMARY | 2025-02-13 11:45 | XMS_ITS | Encounter Summary ---
Author Organization [facility] Address [address] [place] [address] Care Team Providers Care Tug Boat Captain Name Role Phone Brayden Stroud MD Primary Care Provider Marcelo Lozano MD Unavailable [phone] Shobha Conklin Primary Care Provider [phone] Nusrat Dutton MD Unavailable Aguilar Pinedo DO Primary Care Provider [phone] Encounter Details Date Type Department Care Team (Late st Contact Info) Description 01/08/2018 Abstract [facility] [address] [place] [phone] Marcelo Marcum MD [address] [place] [phone] Social History Tobacco Use Types Packs/Day Years [...] Info) Description 07/02/2025 9:00 AM CDT Appointment [facility] Vascular Ultrasound - [facility] [place] [address] [place] [address] Nusrat Dutton MD [address] [place] [address] 07/02/2025 10:15 AM CDT Office Visit [facility] [address] [place] [address] Nusrat Dutton MD [address] [place] [address] documented as of this encounter Procedures Procedure Name Priority Date/Time Associated Diagnosis Comments LIPID PANEL Routine 01/08/2018 documented in this encounter Results * LIPID PANEL (01/08/2018) CHOLESTEROL 174 HDL 108 TRIGLYCERIDES 41 CHOL/HDL RATIO 1.6 LDL (CALCULATED) 58 GPT/ALT 36 01/08/2018 us Doc [facility] Abstract LABORATORY Final Result documented in this encounter Visit Diagnoses Not on filedocumented in this encounter Care Teams Tug Boat Captain Relationship Specialty Start Date End Date Brayden Stroud MD PCP - General SURGERY 10/11/17 10/05/20 Shobha Conklin FNP [address] [place] [address] PCP - General NURSE PRACTITIONER 10/06/20 06/02/24 Aguilar Pinedo DO [address] [place] [address] PCP - General FAMILY PRACTICE 06/03/24 Marcelo Marcum MD [address] [place] [address] Woden Brick Grader CARDIOVASCULAR DISEASE 10/11/17 06/26/23 Nusrat Dutton MD [address] [place] [address] Consulting Physician CARDIOVASCULAR DISEASE 06/27/23 documented as of this encounter
--- OUTSIDE RECORDS SUMMARY | 2025-02-13 11:45 | XMS_ITS | Clinical Summary ---
Author Organization [facility] Care Team Providers Care Buildings And Grounds Coordinator Name Role Phone Shobha Conklin DEB Primary Care Provider [phone] Social History Tobacco Use Types Packs/Day Years [...] Recently Relevant to Health Maintenance Care Teams Buildings And Grounds Coordinator Relationship Specialty Start Date End Date Shobha Conklin APRN [address] [place] [address] PCP - General Family Medicine 04/26/21
--- OUTSIDE RECORDS SUMMARY | 2025-02-13 11:45 | XMS_ITS | Encounter Summary ---
Author Organization [facility] Address [address] [place] [address] Care Team Providers Care Automobile Service Advisor Name Role Phone Brayden Stroud MD Primary Care Provider Marcelo Lozano MD Unavailable [phone] Shobha Conklin Primary Care Provider [phone] Nusrat Dutton MD Unavailable Aguilar Pineod DO Primary Care Provider [phone] Encounter Details Date Type Department Care Team (Late st Contact Info) Description 10/22/2017 Abstract [facility] [address] [place] [phone] Marcelo Marcum MD [address] [place] [address] Social History Tobacco Use Types [...] Info) Description 07/02/2025 9:00 AM CDT Appointment [facility] Vascular Ultrasound - [facility] [place] [address] [place] [address] Nusrat Dutton MD [address] [place] [address] 07/02/2025 10:15 AM CDT Office Visit [facility] [address] [place] [address] Nusrat Dutton MD [address] [place] [address] documented as of this encounter Visit Diagnoses Not on filedocumented in this encounter Care Teams Automobile Service Advisor Relationship Specialty Start Date End Date Brayden Stroud MD PCP - General SURGERY 10/11/17 10/05/20 Shobha Conklin FNP [address] [place] [address] PCP - General NURSE PRACTITIONER 10/06/20 06/02/24 Aguilar Pinedo DO [address] [place] [address] PCP - General FAMILY PRACTICE 06/03/24 Marcelo Marcum MD [address] [place] [address] [place] Facilities Engineering Manager CARDIOVASCULAR DISEASE 10/11/17 06/26/23 Nusrat Dutton MD [address] [place] [address] Consulting Physician CARDIOVASCULAR DISEASE 06/27/23 documented as of this encounter
--- OUTSIDE RECORDS SUMMARY | 2025-02-13 11:45 | XMS_ITS | Encounter Summary ---
Author Organization [facility] Address [facility] [place] [address] Care Team Providers Care Sand Digger Name Role Phone Marcelo Marcum MD Unavailable [phone] Shobha Conklin Primary Care Provider [phone] Nusrat Dutton MD Unavailable Aguilar Pinedo DO Primary Care Provider [phone] Encounter Details Date Type Department Care Team (Late st Contact Info) Description 09/05/2022 MyChart Message Enc [facility] - [facility] [address] [place], [place] [address] [facility] Provider Air Quality Message Social History Tobacco [...] Info) Description 07/02/2025 9:00 AM CDT Appointment [facility] Vascular [facility] [address] [place], [place] [phone] Nusrat Dutton MD [address] [place] [address] 07/02/2025 10:15 AM CDT Office Visit [facility] [address] [place] [address] Nusrat Dutton MD [address] [place] [address] documented as of this encounter Visit Diagnoses Not on filedocumented in this encounter Care Teams Sand Digger Relationship Specialty Start Date End Date Shobha Conklin FNP [address] [place] [address] PCP - General NURSE PRACTITIONER 10/06/20 06/02/24 Aguilar Pinedo DO [address] [place] [address] PCP - General FAMILY PRACTICE 06/03/24 Marcelo Marcum MD [address] [place] [address] Clever Manager Pulmonary CARDIOVASCULAR DISEASE 10/11/17 06/26/23 Nusrat Dutton MD [address] [place] [address] Consulting Physician CARDIOVASCULAR DISEASE 06/27/23 documented as of this encounter
--- OUTSIDE RECORDS SUMMARY | 2025-02-13 11:45 | XMS_ITS | Clinical Summary ---
Author Organization [facility] Medical [facility] Address [address] [place] [phone] Care Team Providers Care Water Aerobics Instructor Name Role Phone Aguilar Pinedoh Primary Care [...] 1 tablet (50 mcg total) by mouth early childhood associate before breakfast Active losartan-hydroC HLOROthiazide (HYZAAR) 100-12.5 [...] Type Department Care Team Description 01/18/2025 Telephone [facility] Pulmonary at [address] [place] [phone] Fariha Ocampo LPN 01/14/2025 Orders Only [facility] Pulmonary at [address] [place] [phone] Enrrique Elaine MD Heterozygous alpha 1-antitrypsin deficiency (HCC) (Primary Dx) 12/28/2024 10:45 AM CDT Office Visit [facility] Pulmonary at [address] [place] [phone] Enrrique Elaine MD Chronic obstructive pulmonary disease, [...] on file Legal Sex Male 11:02 AM SAMPLER RADIOACTIVE WASTE Gender Identity Not on file Sexual Orientation [...] by Dino Villaseñor M.D. JR: Report ID: [id number] Reading Location: [place] [address] Procedure Note Dino Villaseñor MD - 09/01/2024 [...] 3 mm right upper lobe nodule (axial [id number]). Multiple additional nodules are stable, including a 4 mm right apicalnodule (axial image 37), 2 mm right upper lobe nodule anteriorly (axial [id number]), 5 mm nodule along the right major [...] by Dino Villaseñor M.D. JR: Report ID: [id number] Reading Location: [place] [address] Enrrique Elaine MD IMG CT PROCEDURES Final Result from Last 3 Months or Most Recently Relevant to Health Maintenance Insurance MEDICARE [employer] [place] [employer] [place] Care Teams Water Aerobics Instructor Relationship Specialty Start Date End Date Aguilar Pinedo DO [address] [place] [address] PCP - General Family Medicine 08/26/23
--- OUTSIDE RECORDS SUMMARY | 2025-02-13 11:45 | XMS_ITS | Encounter Summary ---
Author Organization [facility] Address [address] [place] [address] Care Team Providers Care Publicity Writer Name Role Phone Brayden Stroud MD Primary Care Provider Marcelo Lozano MD Unavailable [phone] Shobha Conklin Primary Care Provider [phone] Nusrat Dutton MD Unavailable Aguilar Pinedo DO Primary Care Provider [phone] Encounter Details Date Type Department Care Team (Late st Contact Info) Description 05/02/2018 Abstract [facility] [address] [place] [address] Abstract, Doc [facility] Social History Tobacco Use [...] AM CDT Appointment [facility] - [facility] [address] [place] [address] Nusrat Dutton MD [address] [place] [address] 07/02/2025 10:15 AM CDT Office Visit [facility] [address] [place] [address] Nusrat Dutton MD [address] [place] [address] documented as of this encounter Visit Diagnoses Not on filedocumented in this encounter Care Teams Publicity Writer Relationship Specialty Start Date End Date Brayden Stroud MD PCP - General SURGERY 10/11/17 10/05/20 Shobha Conklin, VAULT CLERK [address] [place] [address] PCP - General NURSE PRACTITIONER 10/06/20 06/02/24 Aguilar Pinedo DO [address] [place] [address] PCP - General FAMILY PRACTICE 06/03/24 Marcelo Marcum MD [address] [place] [address] [place] Lawn Mower CARDIOVASCULAR DISEASE 10/11/17 06/26/23 Nusrat Dutton MD [address] [place] [address] Consulting Physician CARDIOVASCULAR DISEASE 06/27/23 documented as of this encounter
--- OUTSIDE RECORDS SUMMARY | 2025-02-13 11:45 | XMS_ITS | Clinical Summary ---
Author Organization [facility] Address [facility] [place] [address] Care Team Providers Care Local Area Network Administrator Name Role Phone Kecia Turner MD Unavailable Aguilar Pinedo DO Primary Care Provider [phone] Allergies Active Allergy Reactions Criticality Noted Date [...] Department Care Team Description 12/10/2024 Orders Only [facility] [address] [place] [address] Kecia Turner MD 12/07/2024 Telephone [facility] [address] [place] [phone] Kecia Turner MD Appointment Request; Orders 12/05/2024 MyChart Message Enc [facility] [address] [place] [address] Kecia Turner MD Pravastatin 12/04/2024 1:15 PM CDT Office Visit [facility] [address] [place] [address] Kecia Turner MD Heart Problem 12/04/2024 8:38 AM CDT - 12/04/2024 11:59 PM CDT Hospital Encounter [facility] Vascular Ultrasound - [facility] [address] [place] [address] Kecia Turner MD Discharge Disposition: Home or Self Care (Routine Discharge) 12/04/2024 8:38 AM CDT - 12/04/2024 11:59 PM CDT Hospital Encounter [facility] Non Invasive Cardiology - [facility] [address] [place] [address] Kecia Turner MD Discharge Disposition: Home or Self Care (Routine Discharge) 12/04/2024 Orders Only [facility] [address] [place] [address] Kecia Turner MD 12/04/2024 Travel 12/04/2024 Orders Only [facility] [address] [place] [address] Kecia Turner MD 12/04/2024 Orders Only [facility] [address] [place] [address] Kecia Turner MD from Last 3 Months [...] Info) Description 07/02/2025 9:00 AM CDT Appointment [facility]ascular Ultrasound - [facility] [place] [address] [place] [address] Kecia Turner MD [address] [place], [place] [address] 07/02/2025 10:15 AM CDT [facility] [address] [place] [address] Kecia Turner MD [address] [place], [place] [address] Health Maintenance Due Date Last Done Comments [...] without heart failure Coronary artery disease involving [place] coronary artery of [place] heart without angina pectoris LIPID PANEL Routine 2024 Shortness of breath Familial hypercholesterolemia Primary hypertension Abdominal aortic aneurysm (AAA) without rupture, unspecified part Hypertensive heart disease without heart failure Coronary artery disease involving [place] coronary artery of [place] heart without angina pectoris ELECTROCARDIOGRAM (NON MIDMARK ACQUIRED) Routine 12/04/2024 11:48 AM CDT Primary hypertension Familial hypercholesterolemia USV AORTA ILIAC IVC DUPLEX COMP Routine 12/04/2024 10:55 AM CDT AAA (abdominal aortic aneurysm) USE ECHOCARDIOGRAM Routine 12/04/2024 9:33 AM CDT HHD (hypertensive heart disease) COLONOSCOPY Routine 08/21/2021 11:23 AM CDT USV AAA SCREENING Routine 11/01/2020 7:33 AM CDT Primary hypertension Coronary artery disease involving [place] coronary artery of [place] heart without angina pectoris Current smoker Dyspnea [...] [facility] - 12/04/2024 6:04 PM CDT [facility] [address] Test Date: 2024-12-04 Pat Name: SHARON KORI Department: 105 Room: Gender: Male Drier Tender Naphthalene: : 1950 Requested By: KECIA TURNER Order Number: [id number] Reading MD: Kecia Turner Measurements Intervals [place] Rate: 52 P: 80 [place]: 190 QRS: -66 QRSD: 128 T: 80 QT: 449 QTc: 420 Interpretive Statements SINUS BRADYCARDIA LEFT AXIS DEVIATION MODERATE INTRAVENTRICULAR CONDUCTION DELAY Procedure Note Kecia Turner MD - 12/04/2024 [facility], [facility] [address] [place] [address] Test Date: 2024-12-04 Pat Name: SHARON SHEIKH Department: 105 Room: Gender: Male Drier Tender Naphthalene: : 1950 Requested By: KECIA TURNER Order Number: [id number] Reading MD: Kecia Turner Measurements Intervals [place] Rate: 52 P: 80 [place]: 190 QRS: -66 QRSD: 128 T: 80 QT: 449 QTc: 420 Interpretive Statements SINUS BRADYCARDIA LEFT AXIS DEVIATION MODERATE INTRAVENTRICULAR CONDUCTION DELAY us Kecia Turner MD PROCEDURES-ORDERABLE NO CHARGE F inal Result [facility] * USV AORTA ILIAC IVC DUPLEX COMP (12/04/2024 10:55 AM CDT) Anatomical Region Laterality Modality NA Ultrasound 12/04/2024 10:2 5 AM CDT Narrative 12/04/2024 12:27 PM CDT Vascular Report Aorta - Iliac Artery Duplex Pat.Name: SHARON SHEIKH Pat.ID: [id number] St.Date: 12/04/2024 Refer.MD: KECIA TURNER Exam Time: 10:25:00 AM Study Type:PVI DUPLEX SCAN-AORTA & ILIAC ART Height: 67 in Age: 9 1950,73Y Sex: M Sonogrphr: NADIA Burns Pat. Stat.:Outpatient ICD - 9: I71.4 AAA without Rupture CPT - 4: 60089 Aorta/IVC Duplex Reason for Study:Abdominal aortic aneurysm [...] Iliac Artery Duplex Pat.Name: SHARON SHEIKH Pat.ID: [id number] .Date: 12/04/2024 Refer.MD: KECIA TURNER Exam Time: 10:25:00 AM Study Type:PVI DUPLEX SCAN-AORTA & ILIAC ART Height: 67 in Age: 9 1950,73Y Sex: M Sonogrphr: NADIA Burns Pat. Stat.:Outpatient ICD - 9: I71.4 AAA without Rupture CPT - 4: 81416 Aorta/IVC Duplex Reason for Study:Abdominal aortic aneurysm [...] PM Kecia Turner M.D. Kecia Turner MD [facility] Final Result * USE ECHOCARDIOGRAM (12/04/2024 9:33 AM CDT) Anatomical Region Laterality Modality Cardiac Echocardiogram 12/04/2024 9:08 AM CDT Narrative 12/05/2024 7:14 PM CDT Echocardiography Report Pat.Name: SHARON SHEIKH Pat.ID: [id number] .Date: 12/04/2024 : [id number] YUE MCDONNELL EWDPROV EWDPROV Exam Time: 9:08:00 [...] Mass 2D Value 152 g LV Mass [id number] Value 82.2 g/m2 Right Ventricle Right Ventricle [...] 12/05/2024 Echocardiography Report Pat.Name: SHARON SHEIKH Pat.ID: [id number] .Date: 12/04/2024 Refer.MD: [id number] YUE MCDONNELL EWDPROV EWDPROV Exam Time: 9:08:00 AM Study Type:ECHO WITH CARDIAC DOPPLER COMP Height: 67 in Weight: 162 lb BSA: 1.85 m2 Age: 9 1950,73Y Sex: M BP: 122/76 HR: 55 bpm Sonogrphr: Beulah Cowart [facility] Pat. Stat.:Outpatient Reason for Study:Hypertension Procedures: 2D, [...] Mass 2D Value 152 g LV Mass [id number] Value 82.2 g/m2 Right Ventricle Right Ventricle [...] DO, 11/01/2020 10:17 AM MITA Mejia APRNC [facility] Final Result from Last 3 Months or Most Recently Relevant to Health Maintenance Insurance MEDICARE [facility] MEDICARE [facility] Care Teams Local Area Network Administrator Relationship Specialty Start Date End Date Aguilar Pinedo DO [address] [place] [address] PCP - General FAMILY PRACTICE 06/03/24 Kecia Turner MD [address] [place] [address] Consulting Physician CARDIOVASCULAR DISEASE 06/27/23
--- OUTSIDE RECORDS SUMMARY | 2025-02-13 11:45 | XMS_ITS | Encounter Summary ---
Author Organization [facility] Address [address] [place] [id number] Care Team Providers Care Automotive Service Cashier Name Role Phone Marcelo Marcum MD Unavailable [phone] Shobha Conklin Primary Care Provider [phone] Nusrat Dutton MD Unavailable Aguilar Pinedo DO Primary Care Provider [phone] Encounter Details Date Type Department Care Team (Late Contact Info) Description 01/30/2023 Abstract [facility] [address] [place] [id number] Marcelo Marcum MD [address] [place] [phone] Social History Tobacco Use Types Packs/Day Years [...] 07/02/2025 9:[address] [facility] - [facility] [address] [place] [address] Nusrat Dutton MD [address] [place] [address] 07/02/2025 10:15 AM CDT Office Visit [facility] [address] [place] [address] Nusrat Dutton MD [address] [place] [address] documented as of this encounter Procedures Procedure Name Priority Date/Time Associated Diagnosis Comments CMP (ABSTRACTED LAB) Routine 10/25/2021 TSH (OUTSIDE LAB) Routine 10/25/2021 LIPID PANEL Routine 10/25/2021 documented in this encounter Results * TSH (OUTSIDE LAB) (10/25/2021) Pathologist [facility] TSH 3.11 0.36 - 3.74 10/25/2021 us Default History Genericprovider LAB-OUTSIDE/ABST RACTED Final Result * LIPID PANEL (10/25/2021) Pathologist [facility] CHOLESTEROL 148 0 - 200 HDL 81 40 - 60 TRIGLYCERIDES 51 0 - 150 LDL (CALCULATED) 57 <130 10/25/2021 us Default History Genericprovider LABORATORY Final Result * (ABNORMAL) CMP (ABSTRACTED LAB) (10/25/2021) Pathologist [facility] SODIUM S/P/B 133 136 - 145 POTASSIUM [...] on filedocumented in this encounter Care Teams Automotive Service Cashier Relationship Specialty Start Date End Date Shobha Conklin FNP [address] [place] [address] PCP - General NURSE PRACTITIONER 10/06/20 06/02/24 Aguilar Pinedo DO [address] [place] [address] PCP - General FAMILY PRACTICE 06/03/24 Marcelo Marcum MD [address] [place] [phone] [place] Chest Pain Coordinator CARDIOVASCULAR DISEASE 10/11/17 06/26/23 Nusrat Dutton MD [address] [place] [address] Consulting Physician CARDIOVASCULAR DISEASE 06/27/23 documented as of this encounter
== END 2025-02-13 11:42 | disposition home or self-care (01) ==
LOC: CHSIMG 11:43
PROVIDERS: PCP Family Medicine; Visit Provider Nurse Practitioner Family
DX: M19.021 Primary osteoarthritis, right elbow (principal); M75.81 Other shoulder lesions, right shoulder; S46.811A Strain of other muscles, fascia and tendons at shoulder and upper arm level, right arm, initial encounter; S43.431A Superior glenoid labrum lesion of right shoulder, initial encounter; M19.011 Primary osteoarthritis, right shoulder
CPT/HCPCS: 73221